=== PATIENT | female | born 1945 | race Caucasian/White ===

== ENCOUNTER 2018-02-28 05:35 | Emergency (ER) | payer MEDICARE, MEDICAID ==
--- NOTE | 2018-02-28 06:00 | ED ---
Altered Mental Status - HPI Summary HPI Summary: 72 year old females presents with confusion today. She called EMS due to someone looking through her window. When EMS got there they said she was acting confused so they brought her to the ED. unknown if this is her baseline. She states that she is confused and that she just doesn't feel right. She denies any chest pain, SOB, abdominal pain, dizziness, dysuria, or headache. She states she does not remember what happened this morning. She is orientated to name and place but not time. She continues to talk about her cat and is worried about the cat. She has PMH of DM and HTN. Level 5 cavet due to AMS. Was seen here in 2016 for a similar presentation and after further work up and information from the family it was found that the patient has history of short term memory loss and can be confused at time and may have early Alzheimer at that time. - History Of Current Complaint Chief Complaint: EDAltMentalStatus Stated Complaint: GENERAL ILLNESS Time Seen by Provider: 02/28/18 05:49 - Allergies/Home Medications Allergies/Adverse Reactions: Allergies Allergy/AdvReac Type Severity Reaction Status Date / Time liraglutide Allergy GI Upset Verified 02/28/18 07:32 Penicillins Allergy Anaphylatic Verified 02/28/18 07:37 Shock Sulfa (Sulfonamide Allergy Anaphylatic Verified 02/28/18 07:37 Antibiotics) Shock Home Medications: Home Medications Multivitamin [Multiple Vitamins] 1 tab PO DAILY 02/28/18 [History Confirmed 08/17] PMH/Surg Hx/FS Hx/Imm Hx Endocrine/Hematology History: Reports: Hx Diabetes Cardiovascular History: Reports: Hx Hypercholesterolemia Sensory History: Reports: Hx Contacts or Glasses Opthamlomology History: Reports: Hx Contacts or Glasses Neurological History: Reports: Hx Dementia - Surgical History Surgery Procedure, Year, and Place: Infectious Disease History: No Infectious Disease History: Denies: Traveled Outside the [place] in Last 30 Days - Family History Known Family History: Positive: Unknown - level 5 - Social History Alcohol Use: Rare Substance Use Type: Reports: None Smoking Status (MU): Never Smoked Tobacco Review of Systems Negative: Fever Negative: Chest Pain Negative: Shortness Of Breath Negative: Abdominal Pain Neurological: Other - confusion, "dont feel right" All Other Systems Reviewed And Are Negative: Yes Physical Exam Triage Information Reviewed: Yes Vital Signs On Initial Exam: Initial Vitals Temp Pulse Resp BP Pulse Ox 97.6 F 75 15 155/83 98 02/28/18 05:42 02/28/18 05:42 02/28/18 05:42 02/28/18 05:42 02/28/18 05:42 Vital Signs Reviewed: Yes Appearance: Positive: Well-Appearing Skin: Positive: Warm, Dry Head/Face: Positive: Normal Head/Face Inspection Eyes: Positive: Normal, EOMI, VALE, Conjunctiva Clear ENT: Positive: Normal ENT inspection, Pharynx normal, TMs normal Respiratory/Lung Sounds: Positive: Clear to Auscultation, Breath Sounds Present Cardiovascular: Positive: Normal, RRR Abdomen Description: Positive: Nontender, Soft Bowel Sounds: Positive: Present Musculoskeletal: Positive: Normal Neurological: Positive: Sensory/Motor Intact, CN Intact II-III. Negative: Alert , Oriented to Person Place, Time Psychiatric: Positive: Normal Diagnostics - Vital Signs Vital Signs Temp Pulse Resp BP Pulse Ox 02/28/18 05:42 97.6 F 75 20 155/83 98 - Laboratory Result Diagrams: 02/28/18 06:15 02/28/18 06:16 Lab Statement: Any lab studies that have been ordered have been reviewed, and results considered in the medical decision making process. - Radiology chest Xray Interpretation: No Acute Changes Radiology Interpretation Completed By: ED Physician - CT brain CT Interpretation: No Acute Changes - IMPRESSION: NO ACUTE INTRACRANIAL PATHOLOGY. MILD DIFFUSE INVOLUTIONAL BENÍTEZ CT Interpretation Completed By: Radiologist - EKG No standard instances Cardiac Rate: NL EKG Rhythm: Sinus Rhythm EKG Interpretation: sinus rhythm, short GA interval EKG Comparison: No Significant Change Re-Evaluation - Re-Evaluation First Eval Re-Evaluation Time: 07:44 Comment: patient urinated on self and doesnt remember doing so. when asked if patient has an issue with memory she states yes and that it has been going on for some time. she states does have caregivers come to her house but unsure when. Second Eval Re-Evaluation Time: 10:50 Comment: patient feels comfortable going home, no compliants Altered Mental Statu Course/Dx - Course Course Of Treatment: 72 year old females presents with confusion today. She called EMS due to someone looking through her window. When EMS got there they said she was acting confused so they brought her to the ED. unknown if this is her baseline. She states that she is confused and that she just doesn't feel right. She denies any chest pain, SOB, abdominal pain, dizziness, dysuria, or headache. She states she does not remember what happened this morning. She is orientated to name and place but not time. She continues to talk about her cat and is worried about the cat. She has PMH of DM and HTN. Level 5 cavet due to AMS. nomal physical exam is orientated to name and place but not time. wbc normal. urine trace leuk and wbc will treat as uti with macrobid. lactic normal. CT brain normal. electrolyes and kidney function normal. milvia called primary and got daugher phone number and left vm. will consults with social work to see if can get more information about living situation to make sure safe discharge in place. aps [facility] [employer] said that this is her baseline. said has daily nurses and gets meals delievered so she has a safe discharge in place. [facility] [employer] said daughter is not a dependable person for her medical needs. will send home on macrobid for uti. patient understand and agrees with plan. - Diagnoses Differential Diagnosis/HQI/PQRI: CVA, Hypoglycemia, Metabolic Disorder, Sepsis Provider Diagnoses: Confusion, UTI (urinary tract infection) Discharge - Sign-Out/Discharge Documenting (check all that apply): Patient Departure - Discharge Plan Condition: Good Disposition: HOME Prescriptions: Nitrofurantoin Monohyd/M-Cryst [Macrobid 100 mg Capsule] 100 mg PO BID #13 cap Patient Education Materials: Urinary Tract Infection in Women (ED), Altered Mental Status (ED) Referrals: Jasmyn Mooney MD [Primary Care Provider] - Additional Instructions: Take Macrobid twice a day for 7days, first dose given in ED Drink plenty of fluids Follow up with primary in 7 days Return to ED if develop fever, flank pain, vomiting or any new or worsening symptoms - Billing Disposition and Condition Condition: GOOD Disposition: Home
[2018-02-28 06:28] LABS: ABS Basophils 0 10^3/ul (0-0.2); ABS Eosinophils 0.1 10^3/ul (0-0.6); ABS Lymphocytes 0.9 10^3/ul (1.0-4.8); ABS Monocytes 0.6 10^3/ul (0-0.8); ABS Neutrophils 4.9 10^3/ul (1.5-7.7); ABS Nucleated RBC 0 10^3/ul; Eosinophil % 1.5 % (0-6); Hematocrit 39 % (35-47); Hemoglobin 13.3 g/dl (12.0-16.0); Lymphocyte % 13.9 % (25-47); Mean Corpuscular HGB Conc 34 g/dl (31-36); Mean Corpuscular Hemoglobin 33 pg (27-31); Mean Corpuscular Volume 97 fL (80-97); Mean Platelet Volume 10.1 um3 (7.4-10.4); Nucleated Red Blood Cells % 0.1; Platelet Count 206 10^3/ul (150-450); Red Blood Count 4.07 10^6/ul (4.00-5.40); Red Cell Distribution Width 15 % (10.5-15); White Blood Count 6.5 10^3/ul (3.5-10.8)
[2018-02-28 06:47] LABS: INR 0.87 (0.77-1.02)
[2018-02-28 06:51] LABS: Urine Appearance Clear; Urine Blood Negative (Negative); Urine Color Yellow; Urine Ketones Negative (Negative); Urine Protein Negative (Negative); Urine Red Blood Cell Trace(0-2/hpf) (Absent); Urine Specific Gravity 1.016 (1.010-1.030); Urine Urobilinogen Negative (Negative); Urine White Blood Cell 1+(6-10/hpf) (Absent)
[2018-02-28] MEDS ORDERED: Ciprofloxacin TAB* 500 MG PO ONE (07:03)
[2018-02-28] MEDS ORDERED: Nitrofurantoin Macrocrystals* 100 MG CAP PO ONE (07:26)
--- NOTE | 2018-02-28 07:38 | RAD ---
HISTORY: ams COMPARISONS: April 05, 2016 TECHNIQUE: Multiple contiguous axial CT scans were obtained of the head without intravenous contrast. FINDINGS: HEMORRHAGE/INFARCT: There is no hemorrhage or acute infarct. MASSES/SHIFT: There is no mass or shift. EXTRA-AXIAL SPACES: There are no extra-axial fluid collections. SULCI AND VENTRICLES: There is mild diffuse and proportional enlargement of the sulci and ventricles. CEREBRUM: There are no focal parenchymal abnormalities. BRAINSTEM: There are no focal parenchymal abnormalities. CEREBELLUM: There are no focal parenchymal abnormalities. VESSELS: The vessels are grossly normal. PARANASAL SINUSES: The paranasal sinuses are clear. ORBITS: The orbits are unremarkable. BONES AND SOFT TISSUE: No bone or soft tissue abnormalities are noted. OTHER: None IMPRESSION: NO ACUTE INTRACRANIAL PATHOLOGY. MILD DIFFUSE INVOLUTIONAL CHANGE.
[2018-02-28 07:45] LABS: EGFR Non-African American 75.5 (>60)
--- NOTE | 2018-02-28 07:58 | RAD ---
HISTORY: ams COMPARISONS: February 29, 2008 VIEWS: 1: frontal portable view of the chest at 6:25 AM FINDINGS: LINES AND TUBES: None. CARDIOMEDIASTINAL SILHOUETTE: The cardiomediastinal silhouette is normal for portable technique. PLEURA: The costophrenic angles are sharp. No pleural abnormalities are noted. LUNG PARENCHYMA: The lungs are clear. ABDOMEN: The upper abdomen is clear. There is no subphrenic gas. BONES AND SOFT TISSUES: No bone or soft tissue abnormalities are noted. IMPRESSION: NO ACTIVE CARDIOPULMONARY DISEASE. R0
[2018-02-28 11:09] VITALS: BP 139/85
== END 2018-02-28 11:00 | disposition home or self-care (01) ==
LOC: ED 05:35
DX: R41.0 Disorientation, unspecified (principal); N39.0 Urinary tract infection, site not specified; E11.9 Type 2 diabetes mellitus without complications; I10 Essential (primary) hypertension; Z88.0 Allergy status to penicillin; Z88.2 Allergy status to sulfonamides
CPT/HCPCS: 36415; 70450; 71045; 80053; 80307; 81003; 81015; 82550; 83605; 83735; 84484; 85025; 85610; 87086; 93005; 99284; A9270-GY

== ENCOUNTER 2019-01-16 10:10 | Inpatient (IN) | payer MEDICARE, MEDICAID ==
[2019-01-16 10:46] LABS: ABS Eosinophils 0.1 10^3/ul (0-0.6); ABS Lymphocytes 1.1 10^3/ul (1.0-4.8); ABS Monocytes 0.5 10^3/ul (0-0.8); ABS Neutrophils 4.2 10^3/ul (1.5-7.7); Eosinophil % 1.8 %; Hematocrit 38 % (35-47); Hemoglobin 12.6 g/dL (12.0-16.0); Lymphocyte % 18.2 %; Mean Corpuscular HGB Conc 33 g/dL (31-36); Mean Corpuscular Hemoglobin 32 pg (27-31); Mean Corpuscular Volume 97 fL (80-97); Mean Platelet Volume 9.8 fL (7.4-10.4); Platelet Count 117 10^3/uL (150-450); Red Blood Count 3.94 10^6 /uL (3.70-4.87); Red Cell Distribution Width 15 % (10-15); White Blood Count 5.9 10^3/uL (3.5-10.8)
--- NOTE | 2019-01-16 10:58 | ED ---
GI/ HPI - HPI Summary HPI Summary: This patient is a 73 year old F brought in by EMS to [facility] for AMS for the past two weeks. Per EMS the pt has had an increase in frequency of urination with a strong odorous smell present. She has pain in her suprapubic region that wraps around to her flanks. She has been having poor memory over the two week course and reports having hallucinations. She denies any CP, fevers, chills, N/V/D, and abdominal pain. She has no aggravating or alleviating factors. Her blood pressure at arrival per EMS was 148/85. She has no alleviating or aggravating symptoms. She has had no Hx of fall. - History of Current Complaint Chief Complaint: EDAltMentalStatus Time Seen by Provider: 01/16/19 10:13 Stated Complaint: POSSIBLE UTI Hx Obtained From: Patient, EMS Onset/Duration: Started Weeks Ago - 2, Still Present Timing: Constant Severity: Moderate Current Severity: Moderate Pain Intensity: 0 Location of Pain: Suprapubic Pain Radiates to: Flank Associated Signs and Symptoms: Positive: Flank Pain, Abdominal Pain - suprapubic region, UTI Symptoms - strong odorous smell during urination, frequency has increased. Negative: Nausea, Vomiting, Diarrhea, Fever, Dysuria, Chills, Chest Pain - Additional Pertinent History Primary Care Physician: JAH - Allergy/Home Medications Allergies/Adverse Reactions: Allergies Allergy/AdvReac Type Severity Reaction Status Date / Time Penicillins AdvReac Severe Nausea And Verified 01/16/19 15:40 Vomiting Sulfa (Sulfonamide AdvReac Severe Nausea And Verified 01/16/19 15:40 Antibiotics) Vomiting liraglutide AdvReac GI Upset Verified 01/16/19 15:41 Home Medications: Home Medications Atorvastatin* [Lipitor*] 40 mg PO DAILY 01/16/19 [History Confirmed 01/16/19] Cyanocobalamin TAB* [Vitamin B12 TAB*] 2,000 mcg PO DAILY 01/16/19 [History Confirmed 01/16/19] Insulin Detemir (NF) [Levemir (NF)] 50 unit SUBCUT BEDTIME 01/16/19 [History Confirmed 01/16/19] Metformin ER (NF) [Glucophage ER 750 MG TAB (NF)] 1,500 mg PO QPM 01/16/19 [ History Confirmed 01/16/19] Multivitamins/Minerals TAB* [Theragran/minerals TAB*] 1 tab PO DAILY 01/16/19 [ History Confirmed 01/16/19] Pioglitazone TAB* [Actos TAB*] 30 mg PO DAILY 01/16/19 [History Confirmed ] PMH/Surg Hx/FS Hx/Imm Hx Previously Healthy: No Endocrine/Hematology History: Reports: Hx Diabetes Cardiovascular History: Reports: Hx Hypercholesterolemia Sensory History: Reports: Hx Contacts or Glasses Opthamlomology History: Reports: Hx Contacts or Glasses Neurological History: Reports: Hx Dementia - Surgical History Surgery Procedure, Year, and Place: Infectious Disease History: No Infectious Disease History: Denies: Traveled Outside the [place] in Last 30 Days - Family History Known Family History: Positive: Unknown - level 5 - Social History Alcohol Use: Rare Hx Substance Use: No Substance Use Type: Reports: None Hx Tobacco Use: No Smoking Status (MU): Never Smoked Tobacco Review of Systems Negative: Fever, Chills Negative: Chest Pain Positive: Abdominal Pain - suprapubic region, radiates to flanks. Negative: Vomiting, Diarrhea, Nausea Positive: frequency - increased, flank pain, other - odorous urination. Negative: dysuria Neurological: Other - memory loss, hallucinations All Other Systems Reviewed And Are Negative: Yes Physical Exam - Summary Physical Exam Summary: Constitutional: Well-developed, Well-nourished, Alert. (-) Distressed Skin: Warm, Dry HENT: Normocephalic; Atraumatic Eyes: Conjunctiva normal Neck: Musculoskeletal ROM normal neck. (-) JVD, (-) Stridor, (-) Tracheal deviation Cardio: Rhythm regular, rate normal, Heart sounds normal; Intact distal pulses; The pedal pulses are 2+ and symmetric. Radial pulses are 2+ and symmetric. (-) Murmur Pulmonary/Chest wall: Effort normal. (-) Respiratory distress, (-) Wheezes, (-) Rales Abd: Soft, (-) tenderness, (-) Distension, (-) Guarding, (-) Rebound Musculoskeletal: Bilateral lower extremity 1+ pitting edema Lymph: (-) Cervical adenopathy Neuro: Alert, Oriented x3 Psych: Mood and affect Normal Triage Information Reviewed: Yes Vital Signs On Initial Exam: Initial Vitals Temp Pulse Resp BP Pulse Ox 97.7 F 71 18 148/85 100 01/16/19 10:16 01/16/19 10:16 01/16/19 10:16 01/16/19 10:16 01/16/19 10:16 Vital Signs Reviewed: Yes Diagnostics - Vital Signs Vital Signs Temp Pulse Resp BP Pulse Ox 01/16/19 10:29 100 01/16/19 10:16 97.7 F 71 18 148/85 100 - Laboratory Lab Results: Lab Results 01/16/19 Range/Units 10:33 WBC 5.9 (3.5-10.8) 10^3/uL RBC 3.94 (3.70-4.87) 10^6 /uL Hgb 12.6 (12.0-16.0) g/dL Hct 38 (35-47) % MCV 97 (80-97) fL MCH 32 H (27-31) pg MCHC 33 (31-36) g/dL RDW 15 (10-15) % Plt Count 117 L (150-450) 10^3/uL MPV 9.8 (7.4-10.4) fL Neut % (Auto) 70.5 % Lymph % (Auto) 18.2 % Logan % (Auto) 9.2 % Eos % (Auto) 1.8 % Baso % (Auto) 0.3 % Absolute Neuts (auto) 4.2 (1.5-7.7) 10^3/ul Absolute Lymphs (auto) 1.1 (1.0-4.8) 10^3/ul Absolute Monos (auto) 0.5 (0-0.8) 10^3/ul Absolute Eos (auto) 0.1 (0-0.6) 10^3/ul Absolute Basos (auto) 0.0 (0-0.2) 10^3/ul Absolute Nucleated RBC 0.0 10^3/ul Nucleated RBC % 0.0 Result Diagrams: 01/16/19 10:33 01/16/19 10:33 Lab Statement: Any lab studies that have been ordered have been reviewed, and results considered in the medical decision making process. - Radiology CXR Radiology Interpretation Completed By: Radiologist Summary of Radiographic Findings: NO ACTIVE CARDIOPULMONARY DISEASE. ED Physician has reviewed this report. - EKG 1029 Cardiac Rate: NL - 78 BPM EKG Rhythm: Sinus Rhythm ST Segment: Normal Ectopy: None Summary of EKG Findings: Normal sinus rhythm at 78 bpm, shortened SC, normal QRS , normal QTc, normal axis, normal ST, normal T-waves, nonspecific EKG. Interpreted by Tamiko Del Castillo MD at 1029 01/16/19. GIGU Course/Dx - Course Course Of Treatment: This patient is a 73 year old F brought in by EMS to [facility] for AMS for the past two weeks. Per EMS the pt has had an increase in frequency of urination with a strong odorous smell present. She has pain in her suprapubic region that wraps around to her flanks. She has been having poor memory over the two week course and reports having hallucinations. upon her PE the pt is found to have bilateral lower extremity 1+ pitting edema. She had a CXR conducted to rule out any pulmonary issues which showed NO ACTIVE CARDIOPULMONARY DISEASE. She has abnormal lab values in her Pit count, BUN/ Creatinine ration, Glucose, B-Natriuetic Peptide, urine appearance is cloudy, Ur Leukocyte Esterase, Urine WBC, Ur Squamous Epith Cells, Urine Bacteria, Urine Glucose, Urine Ascorbic Acid. She received an EKG which showed to be nonspecific and had a normal sinus rhythm at 78 bpm, shortened SC, normal QRS, normal QTc, normal axis, normal ST, normal T-waves. This report was read at 1029 01/16/19. She is being treated with IV Cipro due to a Hx of allergic reactions to Penicillin. Dr. Olsen, hospitalist, will be consulted for admission evaluation due to the pt's AMS and UTI since she lives alone. Dr. Olsen is agreeable and will admit the pt with a Dx of a UTI. - Diagnoses Differential Diagnoses - Female: Urinary Tract Infection Provider Diagnoses: UTI (urinary tract infection) - Physician Notifications Admit/Transition Orders Completed By ED Provider: Yes Discharge - Sign-Out/Discharge Documenting (check all that apply): Patient Departure - admitted Patient Received Moderate/Deep Sedation with Procedure: No - Discharge Plan Condition: Stable Disposition: ADMITTED TO [facility] - Billing Disposition and Condition Condition: STABLE Disposition: Admitted to [facility] - Attestation Statements Document Initiated by Scribe: Yes Documenting Scribe: Lester Tarango Provider For Whom Scribe is Documenting (Include Credential): Tamiko Raymond MD Scribe Attestation: I, Lester Emelina, scribed for Tamiko Del Castillo MD on 01/16/19 at 2151. Scribe Documentation Reviewed: Yes Provider Attestation: The documentation as recorded by the scribe, Lester Tarango accurately reflects the service I personally performed and the decisions made by me, Tamiko Del Castillo MD Status of Scribe Document: Viewed Consult Consult: Dr. Olsen, Hospitalist, will be consulted for a possible admission due to AMS and a UTI since the pt lives alone. Dr. Olsen agrees to admitting the pt with a Dx of a UTI.
[2019-01-16 11:04] LABS: Albumin 3.6 g/dL (3.2-5.2); Albumin/Globulin Ratio 1.2 (1-3); BUN/Creatinine Ratio 35.1 (8-20); Calcium 9.2 mg/dL (8.6-10.3); EGFR African American 88.4 (>60); EGFR Non-African American 73.1 (>60); Globulin 2.9 g/dL (2-4); Potassium 3.8 mmol/L (3.5-5.0); Total Bilirubin 0.5 mg/dL (0.2-1.0); Total Protein 6.5 g/dL (6.4-8.9)
[2019-01-16 11:27] LABS: Activated Partial Thrombo Time 34.3 seconds (26.0-38.0); INR 0.91 (0.82-1.09)
[2019-01-16 11:37] LABS: Urine Appearance Cloudy; Urine Bacteria 3+ (Absent); Urine Bilirubin Negative (Negative); Urine Blood Negative (Negative); Urine Color Yellow; Urine Glucose 3+(>=500 mg/dL) (Negative); Urine Ketones Negative (Negative); Urine Nitrite Negative (Negative); Urine Protein Negative (Negative); Urine Red Blood Cell Trace(0-2/hpf) (Absent); Urine Specific Gravity 1.015 (1.010-1.030); Urine Squamous Epithelial Cell Present (Absent); Urine Urobilinogen Negative (Negative); Urine White Blood Cell 3+(>20/hpf) (Absent)
[2019-01-16] MEDS ORDERED: Ciprofloxacin 400MG IVPREMIX(* 400 MG/200 ML BAG IVPB ONE (11:43)
[2019-01-16] MEDS ORDERED: Acetaminophen TAB* 325 MG PO PRN (12:58)
[2019-01-16] MEDS ORDERED: Dextrose 50% Syringe 50 ML* 25 GM/50 ML SYRINGE IV PUSH PRN (13:06)
--- NOTE | 2019-01-16 14:53 | HP ---
CC: Dr. Alejandro * HISTORY AND PHYSICAL: DATE OF ADMISSION: 01/16/19 PROVIDER: Sandra Bhagat NP PRIMARY CARE PROVIDER: Dr. Alejandro. ATTENDING PHYSICIAN WHILE IN THE HOSPITAL: Dr. Yasmin Olsen * (dictated by Sandra Bhaagt NP). CHIEF COMPLAINT: "I do not know." HISTORY OF PRESENT ILLNESS: Ms. Guadalupe is a 73-year-old female with a past medical history significant for diabetes, hypertension, hyperlipidemia, and dementia, who was brought into the emergency room by EMS. History of present illness was obtained from emergency room records as the patient reports "I don' t know why I am here." She is oriented to person only and to first name only. She is a very poor historian. According to the emergency room record, Ms. Guadalupe was brought to the emergency room by EMS for altered mental status for the past 2 weeks per EMS. The patient has had increased frequency of urination with strong odor. She had pain in the suprapubic region that wrapped around to her back. She has been having poor memory for approximately 2 weeks and there had been reports of hallucinations. There was no reported history of fall. Upon evaluation, the patient again is only alert and oriented to person's first name only. She denies any chest pain, cough, or hemoptysis. She denies any shortness of breath. No nausea, vomiting, diarrhea or abdominal pain. She denies any back pain. She denies any difficulty or pain with urination. She denies any rashes, lesions, or open sores. It is unclear her understanding of these questions as she is very confused at the time of evaluation. Due to her increasing altered mental status and findings of urinary tract infection, we are asked to see and evaluate her for admission. PAST MEDICAL HISTORY: Significant for diabetes, hypertension, hyperlipidemia, and dementia. PAST SURGICAL HISTORY: From her old records dated 03/14/05 reports: 1. Breast reduction. 2. . 3. Tendon graft. HOME MEDICATIONS: Include: 1. Levemir 50 units subcu daily. 2. Atorvastatin 40 mg p.o. daily. 3. Lisinopril 5 mg p.o. daily. 4. Metformin 750 mg p.o. daily. 5. Multivitamin 1 tab p.o. daily. 6. Actos 30 mg p.o. daily. This was obtained from her primary care doctor, Dr. Alejandro's office. Medication list dated 01/16/19. ALLERGIES: She has an allergy to PENICILLIN and SULFA according to her prior records, associated swelling with these medications. FAMILY HISTORY: Unknown. The patient reports "I do not remember." SOCIAL HISTORY: She denies any tobacco, alcohol, or illicit drug use. She reports she lives alone. Surrogate decision maker in the event she is unable to make her own decisions is her daughter, Sandra Guadalupe. She is a full code at this time. REVIEW OF SYSTEMS: An 11-point review of systems was completed. All pertinent positives are mentioned in the HPI. PHYSICAL EXAMINATION GENERAL: At this time, Ms. Guadalupe is a 73-year-old female. She is alert, resting on the stretcher in the emergency room, she is in no acute distress. She is oriented to first name only. She is confused to place, time, and situation. HEENT: Head is atraumatic, normocephalic. Eye: EOMs are intact. Sclerae anicteric and not pale. Oral mucosa appeared to be moist. NECK: Supple. LUNGS: Clear to auscultation bilaterally. No wheezes, rales or rhonchi. CARDIAC: S1, S2, regular rate and rhythm. No rubs or gallops. ABDOMEN: Soft and nontender. There is no suprapubic tenderness. No CVA tenderness. Bowel sounds are present x4. MUSCULOSKELETAL: She is able to move all 4 extremities. There is no clubbing or cyanosis. Pedal pulses are +2 bilaterally. SKIN: Intact. NEUROLOGIC: She is awake, alert, oriented to first name only. There is no gross focal deficits. DIAGNOSTIC STUDIES/LAB DATA: WBCs are 5.9, RBCs 3.94, hemoglobin 12.6, hematocrit was 38, platelet count was 117. INR was 0.91. Sodium 140, potassium 3.9, chloride 106, carbon dioxide 27, anion gap was 7, BUN was 27, creatinine 0.77, glucose was 220, lactic acid was 1.2, calcium was 9.2. ASTs were 14, ALTs 12, alkaline phosphatase was 88. Troponin was 0.00. BNP 212. Urine was within normal limits with the exception of leukocyte esterase of 1+, wbc's were 3+, rbc's were trace, squamous epithelial cells were present, bacteria was 3+, glucose was 3+, ascorbic acid was negative. She had a chest x- ray. Radiologist's impression, no active cardiopulmonary disease. She had an electrocardiogram, which showed sinus rhythm at a rate of 78. ASSESSMENT AND PLAN: Ms. Guadalupe is a 73-year-old female with past medical history significant for diabetes, hypertension, hyperlipidemia, and dementia who presented to the emergency room with complaints per EMS of altered mental status, found to have a urinary tract infection. She will be admitted under observation for: 1. Altered mental status. I suspect her increased altered mental status is related to underlying urinary tract infection. She will be treated with ceftriaxone. She does have an allergy to PENICILLIN and SULFA, which is swelling. She did receive Cipro 400 mg in the emergency room. We will monitor the patient closely during her infusion of ceftriaxone for any sings or symptoms of allergic reaction as there can be a 10% cross sensitivity in regards to penicillin and ceftriaxone. I will also give her gentle hydration of normal saline at 100 cc per hour. 2. Diabetes type 2. I will order fingersticks a.c. and h.s. I will hold her metformin and Actos. I will place her on lispro sliding scale. She continue on her Levemir 50 units at h.s. 3. Hyperlipidemia. She will continue her atorvastatin. 4. Hypertension. She will continue on lisinopril 5 mg p.o. daily. 5. Diet. She can have a consistent carb diet. 6. Code status, she is a full code. 7. DVT prophylaxis. I will place her on Lovenox subcu. TIME SPENT: Time spent on this admission was approximately 60 minutes, greater than half that time was spent at the bedside reviewing events leading thus far to this hospitalization, performing physical exam, and reviewing my plan of care. I have discussed this with my attending Dr. Yasmin Olsen; she is in agreement with my plan. SANDRA GRACIE, HAND II TUBE BENDER [id number]/[facility] #: [id number] BRIAN
[2019-01-16] MEDS: NS 0.9% 1000 ML** 1,000 ML IV SCH (15:12)
[2019-01-16] MEDS: cefTRIAXone(*) 1 GM in NS 0.9% 50 ML* 50 ML IVPB SCH (17:28)
[2019-01-16] MEDS: Enoxaparin(*) 40 MG/0.4 ML SYR SUBCUT SCH (17:28)
[2019-01-16] MEDS: Insulin LISPRO* 1 UNITS UNIT SUBCUT SCH (17:42)
[2019-01-16] MEDS ORDERED: Insulin GLARGINE(*) 1 UNITS UNIT SUBCUT SCH (21:00)
[2019-01-17] MEDS: NS 0.9% 1000 ML** 1,000 ML IV SCH ×2 (05:06→17:55)
[2019-01-17 06:22] LABS: ABS Eosinophils 0.1 10^3/ul (0-0.6); ABS Lymphocytes 1.7 10^3/ul (1.0-4.8); ABS Monocytes 0.6 10^3/ul (0-0.8); ABS Neutrophils 3.4 10^3/ul (1.5-7.7); Eosinophil % 1.9 %; Hematocrit 38 % (35-47); Hemoglobin 12.6 g/dL (12.0-16.0); Lymphocyte % 28.7 %; Mean Corpuscular HGB Conc 33 g/dL (31-36); Mean Corpuscular Hemoglobin 32 pg (27-31); Mean Corpuscular Volume 97 fL (80-97); Nucleated Red Blood Cells % 0.1; Platelet Count 116 10^3/uL (150-450); Red Blood Count 3.91 10^6 /uL (3.70-4.87); Red Cell Distribution Width 15 % (10-15); White Blood Count 5.9 10^3/uL (3.5-10.8)
[2019-01-17 06:38] LABS: BUN/Creatinine Ratio 33.8 (8-20); Calcium 8.9 mg/dL (8.6-10.3); EGFR African American 102.1 (>60); EGFR Non-African American 84.4 (>60); Potassium 3.5 mmol/L (3.5-5.0)
[2019-01-17] MEDS: Cyanocobalamin TAB* 500 MCG PO SCH (07:30)
[2019-01-17] MEDS: Lisinopril TAB* 5 MG PO SCH (07:30)
[2019-01-17] MEDS: Atorvastatin* 40 MG TAB PO SCH (07:30)
[2019-01-17] MEDS: Insulin LISPRO* 1 UNITS UNIT SUBCUT SCH ×3 (07:42→17:53)
[2019-01-17] MEDS: Enoxaparin(*) 40 MG/0.4 ML SYR SUBCUT SCH (12:45)
--- NOTE | 2019-01-17 13:54 | PN ---
Subjective Date of Service: 01/17/19 Interval History: VS: normo-slight hypertesive; afebrile Lab: without leukocytosis, KEVIN, gross abnormality Pt is sitting at edge of bed eating. She states she feels "good." She notes that she is urinating well and has no abdominal pain, cough, fever, or difficulties with bowel movements. She is not oriented to location or date/time , and is unable to answer why she is in the hospital. She is forgetful, pleasantly confused, and, due to this, an unreliable historian. Documented decision maker, Sandra Guadalupe, states she has limited contact with patient and is unable to provide adequate description of baseline. Caregive/ aid states that this is patient's baseline. Objective Active Medications: Acetaminophen (Tylenol Tab*) 650 mg PO Q4H PRN Atorvastatin Calcium (Lipitor*) 40 mg PO DAILY [facility] Cyanocobalamin (Vitamin B12 Tab*) 2,000 mcg PO DAILY [facility] Dextrose (D50w Syringe 50 Ml*) 12.5 gm IV PUSH .FOR FS < 60 - SS PRN Enoxaparin Sodium (Lovenox(*)) 40 mg SUBCUT Q24H [facility] Sodium Chloride (Ns 0.9% 1000 Ml) 1,000 mls @ 75 mls/hr IV PER RATE [facility] Ceftriaxone Sodium 1 gm/ (Sodium Chloride) 50 mls @ 200 mls/hr IVPB Q24H [facility] Insulin Glargine (Lantus(*)) 40 units SUBCUT BEDTIME [facility] Insulin Human Lispro (Humalog*) 0 units SUBCUT AC [facility]; Protocol Lisinopril (Prinivil Tab*) 5 mg PO DAILY [facility] Vital Signs: Temp Pulse Resp BP Pulse Ox 98.2 F 87 22 147/74 98 01/17/19 11:06 01/17/19 11:06 01/17/19 11:06 01/17/19 11:06 01/17/19 11:06 Oxygen Devices in Use Now: None Appearance: Pt is sitting at edge of bed with feet on ground. She speaks loudly and is inquisitive, but is cooperative, friendly, appropriate. She is forgetful, pleasantly confused, and, due to this, an unreliable historian. Eyes: No Scleral Icterus, PERRLA Ears/Nose/Mouth/Throat: NL Teeth, Lips, Gums, Clear Oropharnyx, Mucous Membranes Moist Neck: NL Appearance and Movements; NL JVP, Trachea Midline Respiratory: Symmetrical Chest Expansion and Respiratory Effort, Clear to Auscultation Cardiovascular: NL Sounds; No Murmurs; No JVD, RRR, No Edema Abdominal: NL Sounds; No Tenderness; No Distention, No Hepatosplenomegaly Extremities: No Edema, No Clubbing, Cyanosis Neurological: Alert and Oriented x 3 Result Diagrams: 01/17/19 05:33 01/17/19 05:33 Additional Lab and Data: Lab Results 01/16/19 Range/Units 10:33 WBC 5.9 (3.5-10.8) 10^3/uL RBC 3.94 (3.70-4.87) 10^6 /uL Hgb 12.6 (12.0-16.0) g/dL Hct 38 (35-47) % MCV 97 (80-97) fL MCH 32 H (27-31) pg MCHC 33 (31-36) g/dL RDW 15 (10-15) % Plt Count 117 L (150-450) 10^3/uL MPV 9.8 (7.4-10.4) fL Neut % (Auto) 70.5 % Lymph % (Auto) 18.2 % Major % (Auto) 9.2 % Eos % (Auto) 1.8 % Baso % (Auto) 0.3 % Absolute Neuts (auto) 4.2 (1.5-7.7) 10^3/ul Absolute Lymphs (auto) 1.1 (1.0-4.8) 10^3/ul Absolute Monos (auto) 0.5 (0-0.8) 10^3/ul Absolute Eos (auto) 0.1 (0-0.6) 10^3/ul Absolute Basos (auto) 0.0 (0-0.2) 10^3/ul Absolute Nucleated RBC 0.0 10^3/ul Nucleated RBC % 0.0 Microbiology and Other Data: Microbiology 01/16/19 11:18 Urine Culture - Preliminary Urine Klebsiella Pneumoniae 01/16/19 10:51 Aerobic Blood Culture - Preliminary Blood Venous No Growth Day 1 Anaerobic Blood Culture - Preliminary No Growth Day 1 01/16/19 10:33 Aerobic Blood Culture - Preliminary Blood Venous No Growth Day 1 Anaerobic Blood Culture - Preliminary No Growth Day 1 Assess/Plan/Problems-Billing Assessment: 73yof PMHx DM, HLD, HTN, dementia who presents with AMS and UTI. - Patient Problems (1) Altered mental status Comment: -Pleasantly confused with h/o dementia; unknown baseline -Attempting to contact family, aids, etc to determine previous mental status/ level of dementia- daughter does not keep in close contact and unable to provide details; aid states that patient is back to baselin of pleasantly confused, alert to self only -Patient lives home alone with visiting aids (2) Urinary tract infection Comment: -1+ LE in UA -Urine culture reveals klebsiella; sensitivity pending -Continue ceftriaxone (3) Diabetes mellitus Comment: -Low of 68 this a.m.; otherwise moderately well controlled -Glargine decreased from 40 to 35 -Continue Lispro ss (4) Hypertension Comment: -Moderate control -Continue lisinopril 5 (5) Hyperlipidemia Comment: -Continue atorvastatin (6) Dementia Comment: -Supportive care (7) DVT prophylaxis Comment: -Lovenox (8) Full code status
[2019-01-17] MEDS: cefTRIAXone(*) 1 GM in NS 0.9% 50 ML* 50 ML IVPB SCH (16:18)
[2019-01-17] MEDS: Insulin GLARGINE(*) 1 UNITS UNIT SUBCUT SCH (21:49)
[2019-01-18] MEDS: Insulin LISPRO* 1 UNITS UNIT SUBCUT SCH ×3 (07:34→17:53)
[2019-01-18] MEDS: Cyanocobalamin TAB* 500 MCG PO SCH (07:39)
[2019-01-18] MEDS: Lisinopril TAB* 5 MG PO SCH (07:39)
[2019-01-18] MEDS: Atorvastatin* 40 MG TAB PO SCH (07:39)
--- NOTE | 2019-01-18 11:19 | DS ---
CC: Dr. Alejandro * DISCHARGE SUMMARY: Please let this serve as the discharge summary from inpatient status and the history and physical for admission to care home care. DISPOSITION: Inpatient care home care. DATE OF ADMISSION: 01/16/19 DATE OF DISCHARGE: 01/18/19 PRIMARY CARE PROVIDER: Dr. Alejandro. ATTENDING PHYSICIAN: Dr. Olsen * (dictated by SIVAKUMAR Saunders). PRIMARY DIAGNOSES: 1. Altered mental status. 2. Urinary tract infection. SECONDARY DIAGNOSES: 1. Diabetes mellitus. 2. Hypertension. 3. Hyperlipidemia. 4. Dementia. STUDIES WHILE IN THE HOSPITAL: 1. Chest x-ray 01/16/19, impression: No active cardiopulmonary disease. 2. EKG 01/16/19, normal sinus rhythm. No ST changes. 3. Blood cultures x4, no growth to date (day 2). 4. Urine culture positive for Klebsiella pneumoniae with susceptibility to third generation cephalosporins HILTON less than 1. DISCHARGE MEDICATIONS: Home medications: 1. Atorvastatin 40 mg p.o. daily. 2. Cyanocobalamin 2000 mcg p.o. daily. 3. Insulin detemir 50 units subcu at bedtime. 4. Lisinopril 5 mg p.o. daily. 5. Metformin ER 1500 mg p.o. q.p.m. 6. Multivitamin/minerals 1 tab p.o. daily. 7. Pioglitazone 30 mg p.o. daily. New home medications: 1. Cefdinir 300 mg p.o. b.i.d. starting tonight x10 doses. HISTORY OF PRESENT ILLNESS/HOSPITAL COURSE: Ms. Guadalupe is a 73-year-old female with past medical history significant for diabetes, hypertension, hyperlipidemia , dementia. She was brought to the ER by EMS. She was a poor historian at the time, but it was noted that she was brought due to altered mental status for approximately 2 weeks. She was also noted to have increased urinary frequency, strong odor, suprapubic pain that wrapped around the back, poor memory, hallucinations. In the emergency room, the patient was noted to have a urinary tract infection. She was given Cipro 400 in the ER. She was transitioned to ceftriaxone and admitted to the floor. She continued to receive treatment with ceftriaxone throughout her stay. Urine cultures and blood cultures were sent. Blood cultures reveal no growth to date. Urine culture positive for Klebsiella pneumoniae with susceptibility to third generation cephalosporins. Again the patient was continued on ceftriaxone inpatient and transitioned to p.o. third generation cephalosporin. She will be treated for a total of 7 days. There is concern for altered mental status. The patient appeared to improve somewhat over her hospital stay, although she does have baseline dementia and is typically forgetful. She has multiple levels of support at home including [facility] home health aide, APS, meals on wheels, and Medicare transport. APS pillowcase cleaner was reached for information regarding the patient's baseline. He states that confusion is her baseline with significant short-term memory loss. There continues to be concern that the patient requires more support than she has in place at this time. It is recommended that she be placed in SNF. At the time of assessment, the patient denies chest pain, shortness of breath, abdominal pain, nausea, vomiting, diarrhea, constipation. She denies dysuria, low back pain or flank pain, fever, increased urinary frequency, or hematemesis. It is noted that she again does have dementia and perhaps is unable to provide an appropriate review of systems, but she does not have any concerns at this time. Ms. Guadalupe is stable and will be transferred to care home care, inpatient status. PHYSICAL EXAMINATION: Vital signs are temperature 98.5 oral, heart rate 69, respiratory rate 18, oxygen saturation 100% on room air, blood pressure 154/81. General: Ms. Guadalupe is a well-developed, well-nourished, obese, 73-year-old, white female, who is sitting up in bed, smiling. She is pleasant and cooperative. She is pleasantly confused but is talkative and answers questions. HEENT: PERRL, nonicteric sclerae. Slight hard of hearing. Oral mucous membranes are moist without lesions. Pharynx is clear. Cardiovascular: Regular rate and rhythm with S1, S2 present without murmurs, rubs, clicks, or gallops. Pulmonary: Symmetrical chest expansion. There is no use of accessory muscles. The lungs are clear to auscultation bilaterally without rhonchi, wheezes, or rubs. Abdomen is obese. Bowel sounds noted in all quadrants. There is no tenderness to palpation throughout the abdomen. There is no suprapubic tenderness. Negative for CVA tenderness. Extremities: Skin is warm and smooth bilaterally. No clubbing, cyanosis, or edema. Radial and pedal pulses are palpable. Neuro: The patient is awake. She is alert. She is oriented to self and place, not oriented to date. Strength is 5/5 in upper and lower extremities bilaterally. DISCHARGE PLAN: Inpatient care home care. CONDITION: Good. ACTIVITY: As tolerated. DIET: Heart healthy, ADA/diabetic diet. MEDICATIONS: Start cefdinir 300 mg p.o. q.12 hours starting tonight. This is a summarized report of a complex medical history and hospital stay. For further details, please see the entire medical record. TIME SPENT: Approximately 30 minutes was spent on this discharge, greater than half that time was spent [id number] with the patient discussing discharge plans and instructions. SIVAKUMAR BATEMAN [id number]/[facility] #: [id number] MTDJose
[2019-01-18] MEDS: Enoxaparin(*) 40 MG/0.4 ML SYR SUBCUT SCH (12:44)
--- NOTE | 2019-01-18 15:15 | CONSULT ---
Consult Consult: Consult for Medical Decision Making Capacity S: Psychiatry is asked to evaluate capacity in this 73 y.o. single, white female with a history of Alzheimer's Dementia, admitted to the Hospitalist service on January 16 due to altered mental status with subsequent treatment for UTI. The patient was being prepared for discharge back to her home here in [place] when home health service providers notified the primary team that they did not feel they could adequately meet her needs any further in the home setting. They advocated for SNF placement and the primary team feels that is what is indicated. I asked attending Hospitalist Anna Andre what the risks might entail if Merced went home, which in her estimation include the inability to meet ADLs with related failure to thrive. On exam the patient is pleasant and cooperative with a broad, bright affect. She is clutching a stuffed animal cat and invites me to pet it to see how soft it's fur is. She knows that she is in [place], [place] in the [facility]. Otherwise she is totally disoriented to time and place as well as situation. The patient cannot tell me the circumstances of her hospitalization, nor can she reproduce the treatment (SNF placement) that the team is recommending. She does decline SNF referral when I bring it up but cannot give me any reasons for her declination, saying only "Well I don't know why." Furthermore, she cannot state any risks associated with going home in her current condition. O: aging white female with graying hair; somewhat overweight; dressed in patient gown with fair grooming; speech has normal rate/tone/volume; euthymic mood with a bright affect; denies SI or HI; insight and judgment poor given insistence on going home without placement; awake and alert; disoriented to time and situation A/P: Capacity: During our interaction, Ms. Guadalupe failed to demonstrate a reasonable understanding of her illness and the events leading to hospitalization. She could not articulate what treatment has been recommended by her inpatient providers nor the associated risks of refusing said treatment. In my judgment, she lacks the capacity to make an informed decision about refusing SNF placement. Capacity is subject to change in these situations and psychiatry will continue to follow and manage her neuroleptic therapy. I have discussed my opinion with the patient and attending hospitalist, Anna Andre.
[2019-01-18] MEDS: cefTRIAXone(*) 1 GM in NS 0.9% 50 ML* 50 ML IVPB SCH (15:59)
--- NOTE | 2019-01-18 18:57 | PN ---
Hospitalist Progress Note Date of Service: 01/18/19 -Pt was to be discharged home today, but it desktop support specialist at home were concerned for safety and felt patient needed higher level of care and monitor. -Psych consulted; patient found to be without competence to make decisions -Patient transitioned to Assisted care while seeking placement -Patient will continue treatment for UTI with cefdinir x5 more days -See today's dictated discharge summary for further details
[2019-01-18] MEDS: Insulin GLARGINE(*) 1 UNITS UNIT SUBCUT SCH (20:48)
[2019-01-19] MEDS: Insulin LISPRO* 1 UNITS UNIT SUBCUT SCH ×3 (08:18→17:49)
[2019-01-19] MEDS: Atorvastatin* 40 MG TAB PO SCH (10:00)
[2019-01-19] MEDS: Cyanocobalamin TAB* 500 MCG PO SCH (10:00)
[2019-01-19] MEDS: Lisinopril TAB* 5 MG PO SCH (10:01)
[2019-01-19] MEDS: Enoxaparin(*) 40 MG/0.4 ML SYR SUBCUT SCH (12:38)
[2019-01-19] MEDS: Insulin GLARGINE(*) 1 UNITS UNIT SUBCUT SCH (20:35)
[2019-01-19] MEDS: Cefdinir cap* 300 MG CAP PO SCH (20:35)
[2019-01-20] MEDS: Insulin LISPRO* 1 UNITS UNIT SUBCUT SCH ×3 (07:18→17:38)
[2019-01-20] MEDS: Lisinopril TAB* 5 MG PO SCH (07:49)
[2019-01-20] MEDS: Cyanocobalamin TAB* 500 MCG PO SCH (07:49)
[2019-01-20] MEDS: Cefdinir cap* 300 MG CAP PO SCH ×2 (07:49→21:20)
[2019-01-20] MEDS: Atorvastatin* 40 MG TAB PO SCH (07:49)
[2019-01-20] MEDS: Enoxaparin(*) 40 MG/0.4 ML SYR SUBCUT SCH (13:11)
--- NOTE | 2019-01-20 15:38 | PN ---
Subjective Date of Service: 01/20/19 Interval History: Patient seen and examined. Offers no complaints. States she feels well, no pain , no cough. Objective Active Medications: Acetaminophen (Tylenol Tab*) 650 mg PO Q4H PRN PRN Reason: FEVER/PAIN Atorvastatin Calcium (Lipitor*) 40 mg PO DAILY [facility] Last Admin: 01/20/19 07:49 Dose: 40 mg Cefdinir (Cefdinir Cap*) 300 mg PO BID [facility] Stop: 01/24/19 09:01 Last Admin: 01/20/19 07:49 Dose: 300 mg Cyanocobalamin (Vitamin B12 Tab*) 2,000 mcg PO DAILY [facility] Last Admin: 01/20/19 07:49 Dose: 2,000 mcg Dextrose (D50w Syringe 50 Ml*) 12.5 gm IV PUSH .FOR FS < 60 - SS PRN PRN Reason: FS < 60 Enoxaparin Sodium (Lovenox(*)) 40 mg SUBCUT Q24H [facility] Last Admin: 01/20/19 13:11 Dose: 40 mg Insulin Glargine (Lantus(*)) 35 units SUBCUT BEDTIME [facility] Last Admin: 01/19/19 20:35 Dose: 35 units Insulin Human Lispro (Humalog*) 0 units SUBCUT AC [facility]; Protocol Last Admin: 01/20/19 13:11 Dose: 3 units Lisinopril (Prinivil Tab*) 5 mg PO DAILY [facility] Last Admin: 01/20/19 07:49 Dose: 5 mg Vital Signs - 8 hr 01/20/19 08:00 Respiratory 19 Rate O2 Sat by Pulse 99 Oximetry Oxygen Devices in Use Now: None Appearance: alert, NAD Eyes: No Scleral Icterus, PERRLA Ears/Nose/Mouth/Throat: NL Teeth, Lips, Gums Neck: NL Appearance and Movements; NL JVP, Trachea Midline Respiratory: Symmetrical Chest Expansion and Respiratory Effort, Clear to Auscultation Cardiovascular: NL Sounds; No Murmurs; No JVD, RRR Abdominal: NL Sounds; No Tenderness; No Distention Extremities: No Edema Neurological: - - confused, follows commands, able to make needs known Nutrition: Taking PO's Result Diagrams: 01/17/19 05:33 01/17/19 05:33 Additional Lab and Data: Lab Results 01/16/19 Range/Units 10:33 WBC 5.9 (3.5-10.8) 10^3/uL RBC 3.94 (3.70-4.87) 10^6 /uL Hgb 12.6 (12.0-16.0) g/dL Hct 38 (35-47) % MCV 97 (80-97) fL MCH 32 H (27-31) pg MCHC 33 (31-36) g/dL RDW 15 (10-15) % Plt Count 117 L (150-450) 10^3/uL MPV 9.8 (7.4-10.4) fL Neut % (Auto) 70.5 % Lymph % (Auto) 18.2 % [place] % (Auto) 9.2 % Eos % (Auto) 1.8 % Baso % (Auto) 0.3 % Absolute Neuts (auto) 4.2 (1.5-7.7) 10^3/ul Absolute Lymphs (auto) 1.1 (1.0-4.8) 10^3/ul Absolute Monos (auto) 0.5 (0-0.8) 10^3/ul Absolute Eos (auto) 0.1 (0-0.6) 10^3/ul Absolute Basos (auto) 0.0 (0-0.2) 10^3/ul Absolute Nucleated RBC 0.0 10^3/ul Nucleated RBC % 0.0 Microbiology and Other Data: Microbiology 01/16/19 11:18 Urine Culture - Preliminary Urine Klebsiella Pneumoniae 01/16/19 10:51 Aerobic Blood Culture - Preliminary Blood Venous No Growth Day 1 Anaerobic Blood Culture - Preliminary No Growth Day 1 01/16/19 10:33 Aerobic Blood Culture - Preliminary Blood Venous No Growth Day 1 Anaerobic Blood Culture - Preliminary No Growth Day 1 Assess/Plan/Problems-Billing Assessment: This is a 73 yo female with PMHx of DM, HLD, HTN and dementia who presents to the ER with AMS and UTI. - Patient Problems (1) Urinary tract infection Comment: - klebsiella in culture, treated with ceftriaxone, transitioned to cefdinir in anticipation of DC (2) Altered mental status Code(s): R41.82 - ALTERED MENTAL STATUS, UNSPECIFIED SNOMED Code(s): 114633887 Comment: - Multifactorial, combination of UTI and history of dementia - Appears to be improved, but unable to return home even with community resources that she has in place, discharge would be unsafe; please see notes from psychiatry on patient's capacity - Plan as per CM is to obtain LTC bed in SNF, CM communicated with patient's daughter regarding choices (3) Dementia Code(s): F03.90 - UNSPECIFIED DEMENTIA WITHOUT BEHAVIORAL DISTURBANCE SNOMED Code(s): 11928176 Comment: - Continue supportive care (4) Full code status Code(s): Z78.9 - OTHER SPECIFIED HEALTH STATUS SNOMED Code(s): 717872463 Status and Disposition: Inpatient, anticipated DC to SNF when bed obtained.
[2019-01-20] MEDS: Insulin GLARGINE(*) 1 UNITS UNIT SUBCUT SCH (21:20)
[2019-01-21] MEDS: Insulin LISPRO* 1 UNITS UNIT SUBCUT SCH ×3 (08:23→18:18)
[2019-01-21] MEDS: Atorvastatin* 40 MG TAB PO SCH (09:44)
[2019-01-21] MEDS: Cyanocobalamin TAB* 500 MCG PO SCH (09:44)
[2019-01-21] MEDS: Lisinopril TAB* 5 MG PO SCH (09:45)
[2019-01-21] MEDS: Cefdinir cap* 300 MG CAP PO SCH ×2 (10:00→20:27)
[2019-01-21] MEDS: Enoxaparin(*) 40 MG/0.4 ML SYR SUBCUT SCH (12:35)
[2019-01-21] MEDS: Insulin GLARGINE(*) 1 UNITS UNIT SUBCUT SCH (20:27)
[2019-01-22] MEDS: Insulin LISPRO* 1 UNITS UNIT SUBCUT SCH ×3 (07:58→18:35)
[2019-01-22] MEDS: Cefdinir cap* 300 MG CAP PO SCH ×2 (09:38→21:14)
[2019-01-22] MEDS: Atorvastatin* 40 MG TAB PO SCH (09:39)
[2019-01-22] MEDS: Cyanocobalamin TAB* 500 MCG PO SCH (09:39)
[2019-01-22] MEDS: Lisinopril TAB* 5 MG PO SCH (09:39)
--- NOTE | 2019-01-22 13:06 | DS ---
Amended report to correct date of discharge. CC: Dr. Mj Alejandro; Dr. Anil Rich * DISCHARGE SUMMARY: DATE OF ADMISSION: 01/16/19 DATE OF DISCHARGE: 01/23/19 PRIMARY CARE PROVIDER: Dr. Mj Alejandro. MY ATTENDING PHYSICIAN FOR TODAY: Dr. Tanner Santiago.* (DICTATED BY BRAYDON HOLLEY, CABRERA) CHIEF COMPLAINT: She does not know, she was confused. HOSPITAL COURSE: Please refer to admitting H and P. But in short, Ms. Guadalupe is a 73-year-old female patient with a past medical history of dementia, diabetes, hypertension, hyperlipidemia, who was brought to the emergency department by EMS for acute mental status changes. The patient was a very poor historian. She was not able to describe any history of her symptoms; however, she was able to state that she has some increased urinary frequency and she was noted to have a strong odor to her urine. Her urine was screened and she was found to have urinary tract infection with urine culture growing klebsiella. The patient was admitted for UTI and altered mental status. She was treated with IV fluids and ceftriaxone. She did receive 1 dose of IV Cipro in the emergency department primarily because of her PENICILLIN and SULFA allergies; however, she did not have any close reactivity with her ceftriaxone treatment. The patient was afebrile. She did not show any signs or symptoms of toxicity or sepsis; however, given her severely altered mental status, there was concern that she was beginning the early stages of urinary sepsis. The patient's mental status did improve somewhat, however, not significantly. The case management team did reach out to the patient's daughter, who is her healthcare proxy, although she did improve in terms of her urinary tract infection and she responded well to treatment. Her mental status did return to baseline; however, there was some concern that she was not able to care for herself, although the patient does have significant resources at home in terms of care in the house and assistance with groceries and ADLs and things of that nature. The patient's daughter thought that her mother's dementia had advanced to the point where she would not be able to adequately care for herself and that her discharge would not be safe, unfortunately, the patient was refusing to go to [facility]. Dr. Anil Rich of Psychiatry did come to evaluate the patient for her capacity. It was determined that the patient did not have capacity to understand the ramifications of her going home versus going into a facility. We are told today that the patient has bed availability at the [facility] [place] and she has been accepted there for long-term care. The patient's daughter is in agreement with this plan. DISCHARGE DIAGNOSES: 1. Urinary tract infection with klebsiella 2. Altered mental status. SECONDARY DIAGNOSES: 1. Diabetes mellitus, well controlled. 2. Dementia. 3. Hyperlipidemia. 4. Hypertension. MEDICATIONS AT DISCHARGE: Include: 1. Multivitamin with minerals. 2. Metformin ER 1500 mg p.o. in the evening. 3. Lisinopril 5 mg p.o. daily. 4. Levemir 50 units subcu at bedtime. 5. Vitamin B12 2000 mcg p.o. daily. 6. Atorvastatin 40 mg p.o. daily. New medication: Cefdinir 300 mg p.o. b.i.d. for 1 more day. REVIEW OF SYSTEMS: The patient is confused. Review of systems may be somewhat unreliable; however, she denies any pain, no shortness of breath, no fevers or chills, and no further constitutional complaints. PHYSICAL EXAMINATION: Reveals an older woman in no acute distress. Vital signs are blood pressure 131/89, heart rate 71, respiratory rate 16, O2 saturation 97% on room air, temperature 97.8. HEENT: The patient is atraumatic and normocephalic. PERRLA. Nonicteric sclerae. Oral mucosa is moist. Tongue is midline. Neck: Supple and nontender. No JVD noted. No carotid bruits auscultated. Cardiovascular: S1, S2 present. No murmurs, gallops, or rubs noted. Rate and rhythm are regular. Lungs are clear bilaterally to auscultation, with no wheezing, rhonchi or rales. Abdomen: Soft , nontender, and nondistended. Positive bowel sounds in all 4 quadrants. : Deferred. Musculoskeletal: There is no clubbing, no cyanosis, and no edema. She has +2 distal pulses palpable. Full range of motion. Steady gait. Neurologic: She is confused at baseline but appropriate, able to make her needs known. Very pleasant. No further neuro focal deficits noted. Psychiatric: She is cooperative, pleasant, and appropriate. LABORATORY DATA: WBCs 5.9, RBCs 3.91, hemoglobin 12.6, hematocrit 38, platelets 116. Sodium 143, potassium 3.5, chloride 111, CO2 of 24, BUN 23, creatinine 0.68, GFR 84.4, glucose 92, lactic acid 1.2, calcium 8.9. Bilirubin 0.50, AST 14, ALT 12, alk phos 88. Troponin 0.00. Total protein 6.5, albumin 3.6, globulin 2.9. INR 0.91. Urinalysis at admission showed yellow cloudy urine , pH of 5.0, 1+ leukocyte esterase, 3+ wbc's, trace rbc's, squamous epithelial cells are present, 3+ bacteria, 3+ glucose, and ascorbic acid is present. IMAGING: Chest x-ray dated 01/16/19 shows no active cardiopulmonary disease. DISPOSITION: The patient will be discharged to [facility]. She is in stable condition today. Case management has reached out to the patient's daughter, who is the healthcare proxy, her name is Sandra. Gissel Coombs, window caser has been in communication with her and that she is in agreement with her mother Merced Guadalupe going to [facility] for [facility]. We are currently waiting for [facility] to obtain authorization. Plan is for the patient to be discharged to that facility today. FOLLOWUP: The patient should follow up with the attending fire extinguisher mechanic at [facility] [place] upon admission to that facility. TIME SPENT: Approximately 45 minutes on discharge planning. BRAYDON HOLLEY NP [id number]/[facility] #: [id number] [facility]EW[facility] MEDICAL CENTERJose
[2019-01-22] MEDS: Enoxaparin(*) 40 MG/0.4 ML SYR SUBCUT SCH (13:09)
[2019-01-22] MEDS: Insulin GLARGINE(*) 1 UNITS UNIT SUBCUT SCH (21:13)
[2019-01-23 08:11] VITALS: BP 148/65
[2019-01-23] MEDS: Insulin LISPRO* 1 UNITS UNIT SUBCUT SCH (08:31)
[2019-01-23] MEDS: Atorvastatin* 40 MG TAB PO SCH (09:07)
[2019-01-23] MEDS: Cyanocobalamin TAB* 500 MCG PO SCH (09:07)
[2019-01-23] MEDS: Cefdinir cap* 300 MG CAP PO SCH (09:07)
[2019-01-23] MEDS: Lisinopril TAB* 5 MG PO SCH (09:08)
== END 2019-01-23 11:00 | DRG 690 ==
LOC: ED 10:10 → MED 12:58 → OBSVTOIN 01-18 16:00
PROVIDERS: ADMIT Internal Medicine; ATTEND Internal Medicine
DX: N39.0 Urinary tract infection, site not specified (principal); B96.1 Klebsiella pneumoniae [K. pneumoniae] as the cause of diseases classified elsewhere; E11.9 Type 2 diabetes mellitus without complications; E78.00 Pure hypercholesterolemia, unspecified; E78.5 Hyperlipidemia, unspecified; G30.9 Alzheimer's disease, unspecified; R41.82 Altered mental status, unspecified; F02.80 Dementia in other diseases classified elsewhere, unspecified severity, without behavioral disturbance, psychotic disturbance, mood disturbance, and anxiety; Z88.0 Allergy status to penicillin; Z88.8 Allergy status to other drugs, medicaments and biological substances; Z88.2 Allergy status to sulfonamides
CPT/HCPCS: 36415; 71045; 80048; 80053; 81003; 81015; 83605; 83880; 84484; 85025; 85610; 85730; 87040; 87077; 87086; 87186; 93005; 99284; A9270-GY; J0696; J0744; J1650

== ENCOUNTER 2019-08-30 15:20 | Inpatient (IN) | payer MEDICAID, MEDICARE ==
[2019-08-30] MEDS ORDERED: NS 0.9% 1000 ML** 1,000 ML IV.FLUID IV ONE (15:59)
--- NOTE | 2019-08-30 16:02 | ED ---
Altered Mental Status - HPI Summary HPI Summary: Patient is a 73 y/o F presenting to [facility] via EMS from [facility] for AMS. It is reported that this decline started a week ago. Patient is able to speak but is not responding appropriately to questions. She is a level 5 caveat secondary to AMS. O2 saturation on RA is 93-94%. Pulse is 100s. Hx of UTI noted per medical records. Home medications and allergies are reviewed. - History Of Current Complaint Chief Complaint: EDAltMentalStatus Stated Complaint: DIABETIC ISSUE PER EMS Time Seen by Provider: 08/30/19 15:33 Hx Obtained From: EMS, Medical Records Hx From Patient Unobtainable Due To: Altered Mental Status Onset/Duration: Still Present Timing: Constant, Lasting Weeks Character: Confusion, Responsiveness Aggravating Factor(s): Unknown Alleviating Factor(s): Unknown - Allergies/Home Medications Allergies/Adverse Reactions: Allergies Allergy/AdvReac Type Severity Reaction Status Date / Time Penicillins AdvReac Severe Nausea And Verified 01/16/19 15:40 Vomiting Sulfa (Sulfonamide AdvReac Severe Nausea And Verified 01/16/19 15:40 Antibiotics) Vomiting liraglutide AdvReac GI Upset Verified 01/16/19 15:41 Home Medications: Home Medications Cyanocobalamin INJ * [Vitamin B12 INJ *] 1,000 mcg IM MONTHLY 08/30/19 [History Confirmed 08/30/19] Dulaglutide (NF) [Trulicity (NF)] 0.75 mg SUBCUT WEEKLY 08/30/19 [History Confirmed 08/30/19] Magnesium Hydroxide LIQ* [Milk of Magnesia LIQ*] 30 ml PO DAILY PRN 08/30/19 [ History Confirmed 08/30/19] Pioglitazone HCl/Metformin HCl [Pioglitazone-Metformin 15-500] 1 tab PO BID [History Confirmed 08/30/19] Sennosides/Docusate Sodium [Senna Plus 8.6-50 mg Tablet] 1 tab PO BEDTIME [History Confirmed 08/30/19] PMH/Surg Hx/FS Hx/Imm Hx Endocrine/Hematology History: Reports: Hx Diabetes Cardiovascular History: Reports: Hx Hypercholesterolemia Sensory History: Reports: Hx Contacts or Glasses Denies: Hx Hearing Aid Opthamlomology History: Reports: Hx Contacts or Glasses Neurological History: Reports: Hx Dementia - Surgical History Surgery Procedure, Year, and Place: Infectious Disease History: No Infectious Disease History: Denies: Traveled Outside the [place] in Last 30 Days - Family History Known Family History: Positive: Unknown - level 5 caveat - Social History Alcohol Use: unable to obtain Hx Substance Use: No Substance Use Type: Reports: None Hx Tobacco Use: No Smoking Status (MU): Never Smoked Tobacco Review of Systems - ROS Summary Review of Systems Summary: level 5 caveat secondary to AMS Negative: Fever - on vitals, temp is 98.4 F Neurological: Other - positive - AMS All Other Systems Reviewed And Are Negative: No - Comments Additional Review of Systems Comments: level 5 caveat secondary to AMS Physical Exam - Summary Physical Exam Summary: Constitutional: Well-developed, Well-nourished, Alert. (-) Distressed Skin: Warm, Dry HENT: Normocephalic; Atraumatic, Dry Mucous Membranes. Eyes: Conjunctiva normal Neck: Musculoskeletal ROM normal neck. (-) JVD, (-) Stridor, (-) Tracheal deviation Cardio: Rhythm regular, rate normal, Heart sounds normal; Intact distal pulses; The pedal pulses are 2+ and symmetric. Radial pulses are 2+ and symmetric. (-) Murmur Pulmonary/Chest wall: Effort normal. (-) Respiratory distress, (-) Wheezes, (-) Rales Abd: Soft, (-) tenderness, (-) Distension, (-) Guarding, (-) Rebound Musculoskeletal: (-) Edema Lymph: (-) Cervical adenopathy Neuro: Patient is a level 5 caveat secondary to AMS, patient can answer questions but does so inappropriately Psych: Patient is a level 5 caveat secondary to AMS Triage Information Reviewed: Yes Vital Signs On Initial Exam: Initial Vitals Temp Pulse Resp BP Pulse Ox 98.4 F 106 18 113/74 93 08/30/19 15:28 08/30/19 15:28 08/30/19 15:28 08/30/19 15:28 08/30/19 15:28 Vital Signs Reviewed: Yes Completion Of Physical Exam Limited Due To: Altered Mental Status, Level 5 - Windy Coma Scale Best Eye Response: 4 - Spontaneous Best Motor Response: 6 - Obeys Commands Best Verbal Response: 5 - Oriented Coma Scale Total: 15 Procedures - Sedation Patient Received Moderate/Deep Sedation with Procedure: No Diagnostics - Vital Signs Vital Signs Temp Pulse Resp BP Pulse Ox 08/30/19 15:28 98.4 F 106 18 113/74 93 - Laboratory Result Diagrams: 08/30/19 16:11 08/30/19 21:39 Lab Statement: Any lab studies that have been ordered have been reviewed, and results considered in the medical decision making process. - Radiology CXR Radiology Interpretation Completed By: Radiologist Summary of Radiographic Findings: CXR. IMPRESSION: 1. No acute cardiopulmonary process by radiograph. THIS REPORT WAS REVIEWED BY ED PHYSICIAN. - CT BRAIN CT CT Interpretation Completed By: Radiologist Summary of CT Findings: BRAIN CT. IMPRESSION: 1. No acute intracranial abnormality. 2. Generalized ventriculomegaly, in the context of sulcal prominence, is usually. field marketing representative of cerebral volume loss. However, with altered mental status, correlate for. signs of normal pressure hydrocephalus. THIS REPORT WAS REVIEWED BY ED PHYSICIAN. - EKG 1615 Cardiac Rate: Tachycardia - rate of 104 BPM EKG Rhythm: Sinus Tachycardia Summary of EKG Findings: EKG showed sinus tachycardia with rate of 104 BPM, TWI in V3-V6, no STEMI. EKG was reviewed and interpreted by ED physician. Altered Mental Statu Course/Dx - Course Course Of Treatment: Patient is a 73 y/o F presenting to [facility] via EMS from [facility] for AMS. It is reported that this decline started a week ago. Patient is able to speak but is not responding appropriately to questions. She is a level 5 caveat secondary to AMS. O2 saturation on RA is 93-94%. Pulse is 100s. Hx of UTI noted per medical records. On physical exam, dry mucous membranes noted, patient can answer questions but does not inappropriately. Bloodwork was obtained abnormal values include glucose 1222, lactic acid 2.4, trop 0.06. WBC 11.4, Hct 49, MCV 102, RDW 16, MPV 10.9, absolute neuts 10.1, absolute lymphs 0.6, anion gap 12, BUN 74, creatinine 1.74, BUN/creatinine ratio 42.5. VBG pH was 7.26, pCO2 56, HCO3 21.7, o2 saturation 59.2, base excess -2.8. UA showed trace ketones and 3+ glucose. During ED course, patient received NS and insulin, 1000 units in 100 mls @ 9.072 mls/hr IV. CXR. IMPRESSION: 1. No acute cardiopulmonary process by radiograph. BRAIN CT. IMPRESSION: 1. No acute intracranial abnormality. 2. Generalized ventriculomegaly, in the context of sulcal prominence, is usually. field marketing representative of cerebral volume loss. However, with altered mental status, correlate for. signs of normal pressure hydrocephalus. Patient's case was discussed with Dr. Olsen, Dr. Olsen accepts for admission. - Diagnoses Provider Diagnoses: Diabetic hyperosmolar non-ketotic state - Provider Notifications Discussed Care Of Patient With: Yasmin Olsen Time Discussed With Above Provider: 17:41 Instructed by Provider To: Other - Patient's case was discussed with Dr. Olsen, Dr. Olsen accepts for admission. - Critical Care Time Critical Care Time: 30-74 min - 60 minutes CCT Discharge ED - Sign-Out/Discharge Documenting (check all that apply): Patient Departure - admit All imaging exams completed and their final reports reviewed: Yes - Discharge Plan Condition: Fair Disposition: ADMITTED TO [facility] - Attestation Statements Document Initiated by Scribe: Yes Documenting Scribe: RIK DUGAN Provider For Whom Scribe is Documenting (Include Credential): LELIA FRAUSTO MD Scribe Attestation: IRIK, scribed for LELIA FRAUSTO MD on 08/30/19 at 2306. Status of Scribe Document: Ready
[2019-08-30 16:45] LABS: INR 0.87 (0.82-1.09)
[2019-08-30 16:52] LABS: ABS Lymphocytes 0.6 10^3/ul (1.0-4.8); ABS Monocytes 0.7 10^3/ul (0-0.8); ABS Neutrophils 10.1 10^3/ul (1.5-7.7); AST 52 U/L (13-39); Albumin 3.6 g/dL (3.2-5.2); Albumin/Globulin Ratio 1.2 (1-3); Alkaline Phosphatase 103 U/L (34-104); Anion Gap 12 mmol/L (2-11); BUN/Creatinine Ratio 42.5 (8-20); Blood Urea Nitrogen 74 mg/dL (6-24); CO2 Carbon Dioxide 25 mmol/L (22-32); Calcium 8.6 mg/dL (8.6-10.3); Chloride 103 mmol/L (101-111); EGFR African American 34.5 (>60); EGFR Non-African American 28.5 (>60); Globulin 3.1 g/dL (2-4); Hematocrit 49 % (35-47); Hemoglobin 15.1 g/dL (12.0-16.0); Lymphocyte % 5.4 %; Mean Corpuscular HGB Conc 31 g/dL (31-36); Mean Corpuscular Hemoglobin 31 pg (27-31); Mean Corpuscular Volume 102 fL (80-97); Mean Platelet Volume 10.9 fL (7.4-10.4); Platelet Count 158 10^3/uL (150-450); Potassium 4.9 mmol/L (3.5-5.0); Red Cell Distribution Width 16 % (10-15); Sodium 140 mmol/L (135-145); Total Protein 6.7 g/dL (6.4-8.9); White Blood Count 11.4 10^3/uL (3.5-10.8)
[2019-08-30 16:56] LABS: Troponin I 0.06 ng/mL (<0.03)
[2019-08-30 17:05] LABS: Urine Appearance Clear; Urine Bilirubin Negative (Negative); Urine Blood Negative (Negative); Urine Color Yellow; Urine Glucose 3+(>=500 mg/dL) (Negative); Urine Ketones Trace (Negative); Urine Nitrite Negative (Negative); Urine Protein Negative (Negative); Urine Specific Gravity 1.028 (1.010-1.030); Urine Urobilinogen Negative (Negative)
[2019-08-30 17:55] LABS: Glucose 1222 mg/dL (70-100)
[2019-08-30] MEDS ORDERED: Insulin Infusion 100unit/100mL 100 UNIT/100 ML BAG IV ONE (18:00)
[2019-08-30] MEDS ORDERED: NS 0.9% w/ 40 Meq KCL 1000 ML* 1,000 ML IV SCH ×2 (18:00→18:36)
[2019-08-30 18:42] LABS: ALT 35 U/L (7-52)
[2019-08-30] MEDS ORDERED: NS 0.9% 1000 ML** 1,000 ML IV ONE ×2 (18:56→22:27)
--- NOTE | 2019-08-30 19:04 | HP ---
H&P (Free Text) History and Physical: DATE OF ADMISSION: 08/30/19 REASON FOR ADMISSION: AMS ATTENDING PHYSICIAN: Dr Gillespie/Dr Olsen CHIEF COMPLAINT: AMS HPI: 73F with known medical history of DM, HLD, dementia, AMS, was brought to ED from SNF with AMS. Information is extremely limited d/t AMS, level 5 caveat, and no information available from SNF. Upon arrival to ED, BG noted to be >555, anion gap 12, BUN 74 and creatinine 1.74. ED/floor Course: Given 2.7L bolus. Will be started on insulin gtt ROS: ROS unable to be obtained secondary to dementia/mental status change PMHx: DM, HLD, dementia PSHx: csection Family History: unable to be obtained Social History: unable to be obtained Allergies: Allergies Allergy/AdvReac Type Severity Reaction Status Date / Time Penicillins AdvReac Severe Nausea And Verified 01/16/19 15:40 Vomiting Sulfa (Sulfonamide AdvReac Severe Nausea And Verified 01/16/19 15:40 Antibiotics) Vomiting liraglutide AdvReac GI Upset Verified 01/16/19 15:41 Home Medications: Lisinopril TAB* [Prinivil TAB 5 MG*] 5 mg PO DAILY 04/05/16 [History Confirmed 08/30/19] Atorvastatin* [Lipitor 40 MG*] 40 mg PO EVERY OTHER DAY 01/16/19 [History Confirmed 08/30/19] Cyanocobalamin INJ * [Vitamin B12 INJ *] 1,000 mcg IM MONTHLY 08/30/19 [History Confirmed 08/30/19] Dulaglutide (NF) [Trulicity (NF)] 0.75 mg SUBCUT WEEKLY 08/30/19 [History Confirmed 08/30/19] Magnesium Hydroxide LIQ* [Milk of Magnesia LIQ*] 30 ml PO DAILY PRN 08/30/19 [ History Confirmed 08/30/19] Pioglitazone HCl/Metformin HCl [Pioglitazone-Metformin 15-500] 1 tab PO BID [History Confirmed 08/30/19] Sennosides/Docusate Sodium [Senna Plus 8.6-50 mg Tablet] 1 tab PO BEDTIME [History Confirmed 08/30/19] Tele: NSR Vitals: Vital Signs 08/30/19 08/30/19 08/30/19 15:28 15:41 15:58 Temperature 98.4 F Pulse Rate 106 102 Respiratory 18 Rate Blood Pressure 113/74 136/90 (mmHg) O2 Sat by Pulse 93 93 93 Oximetry 08/30/19 08/30/19 08/30/19 16:01 16:55 17:00 Temperature Pulse Rate 103 100 101 Respiratory 23 20 Rate Blood Pressure 90/77 (mmHg) O2 Sat by Pulse 93 93 94 Oximetry 08/30/19 08/30/19 17:12 17:42 Temperature Pulse Rate 102 98 Respiratory 24 28 Rate Blood Pressure 148/67 134/78 (mmHg) O2 Sat by Pulse 95 99 Oximetry Intake and Output Last 24 Hours 08/28/19 08/29/19 08/30/19 08/31/19 06:59 06:59 06:59 06:59 Weight 200 lb O2: RA Infusions: NA Current Medications: Atorvastatin Calcium (Lipitor*) 40 mg PO EVERY OTHER DAY [facility] Insulin Human Regular (Insulin Regular Iv Infusion 1 Unit/Ml) 100 unit in 100 mls @ 9.072 mls/hr IV PER RATE ONE Stop: 08/31/19 05:01 Last Admin: 08/30/19 18:31 Dose: 9.072 mls/hr Potassium Chloride/Sodium Chloride (Ns 0.9% W/ 40 Meq Kcl 1000 Ml*) 1,000 mls @ 100 mls/hr IV PER RATE [facility] Senna/Docusate Sodium (Sennokot-S(Nf)) 1 tab PO BEDTIME [facility] Physical Exam: Constitutional: awake, alert, no distress, no diaphoresis Head: normocephalic, atraumatic Eyes: no pallor, no icterus ENT: moist mucous membranes Neck: soft, supple, no jvd, no stridor CVS: normal rate, regular, no murmur Chest/Resp: bilateral air entry, no rhales, no wheeze, no rhonchi, no acc muscle use Abdomen/GI: soft, nontender, nondistended, BS+ Ext/Msk: warm, pulses+, 1+ pitting edema BLE Skin: intact, warm Neuro: awake, alert, unable to answer orientation questions. Nonverbal. Does follow simple commands. PERRL 3mm, moving all extremities, no gross focal deficit Labs: Laboratory Results - last 24 hr 08/30/19 08/30/1920 16:03 16:11 16:11 WBC 11.4 H RBC 4.80 Hgb 15.1 Hct 49 H MCV 102 H MCH 31 MCHC 31 RDW 16 H Plt Count 158 MPV 10.9 H Neut % (Auto) 88.2 Lymph % (Auto) 5.4 [place] % (Auto) 6.3 Eos % (Auto) 0.0 Baso % (Auto) 0.1 Absolute Neuts (auto) 10.1 H Absolute Lymphs (auto) 0.6 L Absolute Monos (auto) 0.7 Absolute Eos (auto) 0.0 Absolute Basos (auto) 0.0 Absolute Nucleated RBC 0.0 Nucleated RBC % 0.0 INR (Anticoag Therapy) 0.87 APTT 26.0 VBG pH 7.26 L VBG pCO2 56 H VBG pO2 < 38.0 VBG HCO3 21.7 L VBG O2 Saturation 59.2 L VBG Base Excess -2.8 L Sodium Potassium Chloride Carbon Dioxide Anion Gap BUN Creatinine Est GFR ( Amer) Est GFR (Non-Af Amer) BUN/Creatinine Ratio Glucose POC Glucose (mg/dL) Lactic Acid Calcium Total Bilirubin AST ALT Alkaline Phosphatase Troponin I Total Protein Albumin Globulin Albumin/Globulin Ratio Urine Color Urine Appearance Urine pH Ur Specific [place] Urine Protein Urine Ketones Urine Blood Urine Nitrate Urine Bilirubin Urine Urobilinogen Ur Leukocyte Esterase Urine Glucose 08/30/19 08/30/19 08/30/19 16:11 16:11 16:12 WBC RBC Hgb Hct MCV MCH MCHC RDW Plt Count MPV Neut % (Auto) Lymph % (Auto) [place] % (Auto) Eos % (Auto) Baso % (Auto) Absolute Neuts (auto) Absolute Lymphs (auto) Absolute Monos (auto) Absolute Eos (auto) Absolute Basos (auto) Absolute Nucleated RBC Nucleated RBC % INR (Anticoag Therapy) APTT VBG pH VBG pCO2 VBG pO2 VBG HCO3 VBG O2 Saturation VBG Base Excess Sodium 140 Potassium 4.9 Chloride 103 Carbon Dioxide 25 Anion Gap 12 H BUN 74 H Creatinine 1.74 H Est GFR ( Amer) 34.5 Est GFR (Non-Af Amer) 28.5 BUN/Creatinine Ratio 42.5 H Glucose 1222 H* POC Glucose (mg/dL) > 444 H* Lactic Acid 2.4 H* Calcium 8.6 Total Bilirubin 0.60 AST 52 H ALT 35 Alkaline Phosphatase 103 Troponin I 0.06 H* Total Protein 6.7 Albumin 3.6 Globulin 3.1 Albumin/Globulin Ratio 1.2 Urine Color Urine Appearance Urine pH Ur Specific [place] Urine Protein Urine Ketones Urine Blood Urine Nitrate Urine Bilirubin Urine Urobilinogen Ur Leukocyte Esterase Urine Glucose 08/30/19 16:56 WBC RBC Hgb Hct MCV MCH MCHC RDW Plt Count MPV Neut % (Auto) Lymph % (Auto) [place] % (Auto) Eos % (Auto) Baso % (Auto) Absolute Neuts (auto) Absolute Lymphs (auto) Absolute Monos (auto) Absolute Eos (auto) Absolute Basos (auto) Absolute Nucleated RBC Nucleated RBC % INR (Anticoag Therapy) APTT VBG pH VBG pCO2 VBG pO2 VBG HCO3 VBG O2 Saturation VBG Base Excess Sodium Potassium Chloride Carbon Dioxide Anion Gap BUN Creatinine Est GFR ( Amer) Est GFR (Non-Af Amer) BUN/Creatinine Ratio Glucose POC Glucose (mg/dL) Lactic Acid Calcium Total Bilirubin AST ALT Alkaline Phosphatase Troponin I Total Protein Albumin Globulin Albumin/Globulin Ratio Urine Color Yellow Urine Appearance Clear Urine pH 5.0 Ur Specific [place] 1.028 Urine Protein Negative Urine Ketones Trace A Urine Blood Negative Urine Nitrate Negative Urine Bilirubin Negative Urine Urobilinogen Negative Ur Leukocyte Esterase Negative Urine Glucose 3+(>=500 mg/dl) A Imaging: chest xray 08/30: clear EKG: sinus tachy, qtc 553 Assessment: 73F with known medical history of DM, HLD, dementia, presents with AMS on 08/30. BG 1222, anion gap 12, BUN 74, creatinine 1.74, AST 52, troponin 0.06 - HHS - AMS - Dementia - KEVIN Plan: Neuro- - AMS: acute. Most likely d/t HHS. CT brain done, showed possible NPH but unable to determine at this time. Will correct metabolic imbalances and then reassess -Delirium prec; avoid BDZ CVS- - Troponin slightly elevated @ 0.06. Will trend -Maintain MAP>65 as long as SBP<150 Resp- - No active issues - Chest xray clear -Goal sat>92% - Aspiration prec, Pulmonary Toilet ID- - WBC slightly elevated @ 11. - R/o infection - UA and blood cultures pending GI- -Nutrition: NPO until NYLON WINDER -GI prophylaxis not indicated at this time Renal- -strict I/O, replete to keep K>4, Mg>2 -morejon - KEVIN: BUN/creat elevated. continue hydration and monitor Heme- - SCDs for DVT prophylaxis Endo- - HHS: acute. Bolused with 2.7L in ED. NS @ 125. - Insulin gtt per protocol. BG q1hr. - BMP/Mag/phos q6hr -Maintain BG<200 Musculsk- pressure ulcer prophylaxis. Activity as tolerated Wounds- none Nutrition-NPO until NYLON WINDER DVT prophylaxis: SCDs GI prophylaxis: not indicated Morejon Cathetor:place Disposition: Admit to ICU; Expected LOS>2 midnights; Patient requires Critical Care/ICU for HHS, AMS, KEVIN Patient Clinical Status: critical Code Status: full Total Critical Care time is 45 minutes
[2019-08-30] MEDS ORDERED: Haloperidol INJ IV/IM* 5 MG/ML AMP IM ONE (20:14)
[2019-08-30] MEDS ORDERED: Haloperidol INJ IV/IM* 5 MG/ML AMP ONE (20:19)
[2019-08-30] MEDS ORDERED: Magnesium Sulfate 1 GM IV* 1 GM/100 ML BAG IV ONE (20:21)
[2019-08-30 20:29] LABS: Glucose Confirmatory 631 mg/dL (70-100)
[2019-08-30] MEDS ORDERED: Nystatin TOP POWDER* 15 GM BTL TOPICAL SCH (21:00)
[2019-08-30] MEDS ORDERED: Nystatin CREAM* 30 GM TOPICAL SCH (21:23)
[2019-08-30 21:31] LABS: BUN/Creatinine Ratio 42.6 (8-20); Blood Urea Nitrogen 60 mg/dL (6-24); CO2 Carbon Dioxide 22 mmol/L (22-32); Calcium 8.2 mg/dL (8.6-10.3); EGFR Non-African American 36.4 (>60); Phosphorus 2.1 mg/dL (2.5-5.0)
[2019-08-30 21:35] LABS: Anion Gap 11 mmol/L (2-11); Chloride 118 mmol/L (101-111); Glucose 634 mg/dL (70-100); Sodium 151 mmol/L (135-145)
[2019-08-30 21:41] LABS: Troponin I 0.07 ng/mL (<0.03)
[2019-08-30] MEDS: NS 0.9% 1000 ML** 1,000 ML IV SCH ×2 (21:49→23:52)
[2019-08-30] MEDS: Senna TAB 8.6 mg* TAB PO SCH (21:52)
[2019-08-30] MEDS: Docusate CAP* 100 MG PO SCH (21:52)
[2019-08-30 21:55] LABS: Magnesium 3.1 mg/dL (1.9-2.7); Potassium Redraw 4.3 mmol/L (3.5-5.0)
[2019-08-30] MEDS ORDERED: Dexmedetomidine* 1,000 MCG in NS 0.9% 250 ML* 240 ML IV SCH (22:00)
[2019-08-30 22:08] LABS: Urine Appearance Clear; Urine Bilirubin Negative (Negative); Urine Blood 2+ (Negative); Urine Color Straw; Urine Glucose 3+(>=500 mg/dL) (Negative); Urine Ketones Negative (Negative); Urine Nitrite Negative (Negative); Urine Protein Negative (Negative); Urine Specific Gravity 1.032 (1.010-1.030); Urine Urobilinogen Negative (Negative)
[2019-08-30 22:11] LABS: Urine Bacteria 1+ (Absent); Urine Red Blood Cell 1+(3-5/hpf) (Absent); Urine White Blood Cell Trace(0-5/hpf) (Absent)
[2019-08-30] MEDS ORDERED: KCL 20 MEQ/100 ML IVPREMIX* 20 MEQ/100 ML BAG IV ONE (22:27)
[2019-08-30] MEDS: Nystatin OINT* 15 GM TOPICAL SCH (22:33)
[2019-08-31] MEDS ORDERED: NS 0.9% 1000 ML** 1,000 ML IV SCH (00:15)
[2019-08-31 04:11] LABS: ABS Lymphocytes 1.3 10^3/ul (1.0-4.8); ABS Monocytes 0.6 10^3/ul (0-0.8); ABS Neutrophils 7.4 10^3/ul (1.5-7.7); Eosinophil % 0.3 %; Hematocrit 41 % (35-47); Hemoglobin 13.2 g/dL (12.0-16.0); Lymphocyte % 14.1 %; Mean Corpuscular HGB Conc 32 g/dL (31-36); Mean Corpuscular Hemoglobin 31 pg (27-31); Mean Corpuscular Volume 96 fL (80-97); Mean Platelet Volume 9.9 fL (7.4-10.4); Platelet Count 122 10^3/uL (150-450); Red Blood Count 4.26 10^6 /uL (3.70-4.87); Red Cell Distribution Width 15 % (10-15); White Blood Count 9.4 10^3/uL (3.5-10.8)
[2019-08-31 04:32] LABS: Blood Urea Nitrogen 48 mg/dL (6-24); CO2 Carbon Dioxide 25 mmol/L (22-32); Calcium 7.5 mg/dL (8.6-10.3); EGFR African American 66.9 (>60); EGFR Non-African American 55.3 (>60); Glucose 260 mg/dL (70-100); Magnesium 2.7 mg/dL (1.9-2.7); Phosphorus 1.8 mg/dL (2.5-5.0)
[2019-08-31 04:34] LABS: Anion Gap 3 mmol/L (2-11); Chloride 127 mmol/L (101-111); Sodium 155 mmol/L (135-145)
[2019-08-31 04:46] LABS: Troponin I 0.08 ng/mL (<0.03)
[2019-08-31] MEDS: D5W 1/2 NS KCl 20 Meq 1000 ML* 1,000 ML IV SCH ×3 (05:24→22:07)
[2019-08-31] MEDS ORDERED: Dexmedetomidine* 1,000 MCG in NS 0.9% 250 ML* 240 ML IV SCH (05:30)
[2019-08-31] MEDS ORDERED: Insulin Infusion 100unit/100mL 100 UNIT/100 ML BAG IV SCH ×3 (06:00→20:00)
[2019-08-31] MEDS ORDERED: Potassium Phosphate IV* 10 MMOLE in NS 0.9% 250 ML* 250 ML IVPB ONE (08:00)
[2019-08-31] MEDS: Nystatin OINT* 15 GM TOPICAL SCH ×2 (12:37→21:33)
[2019-08-31] MEDS ORDERED: Lorazepam PYXIS KEY ONE (15:27)
[2019-08-31] MEDS ORDERED: Lorazepam PYXIS KEY PRN (15:27)
[2019-08-31] MEDS ORDERED: LORazepam INJ* 2 MG/ML 1 ML VIAL ONE ×2 (15:27→19:48)
[2019-08-31] MEDS ORDERED: LORazepam INJ* 2 MG/ML 1 ML VIAL IV PUSH ONE ×2 (15:27→20:00)
--- NOTE | 2019-08-31 16:14 | PN ---
Date of Service: 08/31/19 Critical Care Services: Patient was admitted from [facility] yesterday. She has no complaints this morning. She denies chest pain, shortness of breath, or abdominal pain. She does not know why she is in the hospital. Afebrile. Vital Signs: Temp Pulse Resp BP SpO2 FiO2 96.8 F 69 19 112/63 96 08/31/19 11:01 08/31/19 11:01 08/31/19 16:12 08/31/19 11:08/31/19 11:01 Physical Exam: Gen: No acute distress. Lying in bed. HEENT: Normocephalic and atraumatic. Pupils are equal. Moist mucous membranes. Neck supple and trachea midline. Lungs: Clear to auscultation bilaterally. No accessory muscle use. Cardiac: RRR Abdomen: Soft, nontender, nondistended. Extremities: Warm. Palpable pedal pulses. No pedal edema. Neuro: Awake and alert. Confused, oriented to person and place only. Moves all extremities equally. No focal deficits. Psych: Affect normal. Fluid Balance (Past 24 Hours): Net +1461 ml / 24h Intake & Output 08/29/19 08/30/19 08/31/19 09/01/19 06:59 06:59 06:59 06:59 Intake Total 2426 Output Total 965 185 Balance 1461 -185 Weight 167 lb 9.6 oz Intake: IV Fluids 1583 D5W 1/2 NS 40 meq KCL 50 NS (0.9%) 1433 mag 100 IVPB 741 NS (0.9%) 741 Medicated IV 102 insulin 33 precedex 69 Output: Urine 200 [place] 765 185 Labs: Laboratory Results - last 24 hr 08/30/19 08/30/19 08/30/19 16:03 16:11 16:11 WBC 11.4 H RBC 4.80 Hgb 15.1 Hct 49 H MCV 102 H MCH 31 MCHC 31 RDW 16 H Plt Count 158 MPV 10.9 H Neut % (Auto) 88.2 Lymph % (Auto) 5.4 [place] % (Auto) 6.3 Eos % (Auto) 0.0 Baso % (Auto) 0.1 Absolute Neuts (auto) 10.1 H Absolute Lymphs (auto) 0.6 L Absolute Monos (auto) 0.7 Absolute Eos (auto) 0.0 Absolute Basos (auto) 0.0 Absolute Nucleated RBC 0.0 Nucleated RBC % 0.0 INR (Anticoag Therapy) 0.87 APTT 26.0 VBG pH 7.26 L VBG pCO2 56 H VBG pO2 < 38.0 VBG HCO3 21.7 L VBG O2 Saturation 59.2 L VBG Base Excess -2.8 L Sodium Potassium Chloride Carbon Dioxide Anion Gap BUN Creatinine Est GFR ( Amer) Est GFR (Non-Af Amer) BUN/Creatinine Ratio Glucose POC Glucose (mg/dL) Glucose Meter Confirm Lactic Acid Calcium Phosphorus Magnesium Total Bilirubin AST ALT Alkaline Phosphatase Troponin I Total Protein Albumin Globulin Albumin/Globulin Ratio Urine Color Urine Appearance Urine pH Ur Specific [place] Urine Protein Urine Ketones Urine Blood Urine Nitrate Urine Bilirubin Urine Urobilinogen Ur Leukocyte Esterase Urine WBC (Auto) Urine RBC (Auto) Urine Bacteria Urine Glucose 08/30/19 08/30/19 08/30/19 16:11 16:11 16:12 WBC RBC Hgb Hct MCV MCH MCHC RDW Plt Count MPV Neut % (Auto) Lymph % (Auto) [place] % (Auto) Eos % (Auto) Baso % (Auto) Absolute Neuts (auto) Absolute Lymphs (auto) Absolute Monos (auto) Absolute Eos (auto) Absolute Basos (auto) Absolute Nucleated RBC Nucleated RBC % INR (Anticoag Therapy) APTT VBG pH VBG pCO2 VBG pO2 VBG HCO3 VBG O2 Saturation VBG Base Excess Sodium 140 Potassium 4.9 Chloride 103 Carbon Dioxide 25 Anion Gap 12 H BUN 74 H Creatinine 1.74 H Est GFR ( Amer) 34.5 Est GFR (Non-Af Amer) 28.5 BUN/Creatinine Ratio 42.5 H Glucose 1222 H* POC Glucose (mg/dL) > 444 H* Glucose Meter Confirm Lactic Acid 2.4 H* Calcium 8.6 Phosphorus Magnesium Total Bilirubin 0.60 AST 52 H ALT 35 Alkaline Phosphatase 103 Troponin I 0.06 H* Total Protein 6.7 Albumin 3.6 Globulin 3.1 Albumin/Globulin Ratio 1.2 Urine Color Urine Appearance Urine pH Ur Specific [place] Urine Protein Urine Ketones Urine Blood Urine Nitrate Urine Bilirubin Urine Urobilinogen Ur Leukocyte Esterase Urine WBC (Auto) Urine RBC (Auto) Urine Bacteria Urine Glucose 08/30/19 08/30/19 08/30/19 16:56 20:01 20:04 WBC RBC Hgb Hct MCV MCH MCHC RDW Plt Count MPV Neut % (Auto) Lymph % (Auto) [place] % (Auto) Eos % (Auto) Baso % (Auto) Absolute Neuts (auto) Absolute Lymphs (auto) Absolute Monos (auto) Absolute Eos (auto) Absolute Basos (auto) Absolute Nucleated RBC Nucleated RBC % INR (Anticoag Therapy) APTT VBG pH VBG pCO2 VBG pO2 VBG HCO3 VBG O2 Saturation VBG Base Excess Sodium 151 H D Potassium TNP Chloride 118 H Carbon Dioxide 22 Anion Gap 11 BUN 60 H Creatinine 1.41 H Est GFR ( Amer) 44.0 Est GFR (Non-Af Amer) 36.4 BUN/Creatinine Ratio 42.6 H Glucose 634 H* POC Glucose (mg/dL) > 444 H* Glucose Meter Confirm 631 H* Lactic Acid Calcium 8.2 L Phosphorus 2.1 L Magnesium TNP Total Bilirubin AST ALT Alkaline Phosphatase Troponin I 0.07 H* Total Protein Albumin Globulin Albumin/Globulin Ratio Urine Color Yellow Urine Appearance Clear Urine pH 5.0 Ur Specific [place] 1.028 Urine Protein Negative Urine Ketones Trace A Urine Blood Negative Urine Nitrate Negative Urine Bilirubin Negative Urine Urobilinogen Negative Ur Leukocyte Esterase Negative Urine WBC (Auto) Urine RBC (Auto) Urine Bacteria Urine Glucose 3+(>=500 mg/dl) A 08/30/19 08/30/19 08/30/19 21:17 21:30 21:39 WBC RBC Hgb Hct MCV MCH MCHC RDW Plt Count MPV Neut % (Auto) Lymph % (Auto) [place] % (Auto) Eos % (Auto) Baso % (Auto) Absolute Neuts (auto) Absolute Lymphs (auto) Absolute Monos (auto) Absolute Eos (auto) Absolute Basos (auto) Absolute Nucleated RBC Nucleated RBC % INR (Anticoag Therapy) APTT VBG pH VBG pCO2 VBG pO2 VBG HCO3 VBG O2 Saturation VBG Base Excess Sodium Potassium Chloride Carbon Dioxide Anion Gap BUN Creatinine Est GFR ( Amer) Est GFR (Non-Af Amer) BUN/Creatinine Ratio Glucose POC Glucose (mg/dL) > 444 H* Glucose Meter Confirm Lactic Acid 3.7 H* Calcium Phosphorus Magnesium Total Bilirubin AST ALT Alkaline Phosphatase Troponin I Total Protein Albumin Globulin Albumin/Globulin Ratio Urine Color Straw Urine Appearance Clear Urine pH 5.0 Ur Specific [place] 1.032 H Urine Protein Negative Urine Ketones Negative Urine Blood 2+ A Urine Nitrate Negative Urine Bilirubin Negative Urine Urobilinogen Negative Ur Leukocyte Esterase Trace A Urine WBC (Auto) Trace(0-5/hpf) Urine RBC (Auto) 1+(3-5/hpf) A Urine Bacteria 1+ A Urine Glucose 3+(>=500 mg/dl) A 08/30/19 08/30/19 08/31/19 21:39 23:22 00:20 WBC RBC Hgb Hct MCV MCH MCHC RDW Plt Count MPV Neut % (Auto) Lymph % (Auto) [place] % (Auto) Eos % (Auto) Baso % (Auto) Absolute Neuts (auto) Absolute Lymphs (auto) Absolute Monos (auto) Absolute Eos (auto) Absolute Basos (auto) Absolute Nucleated RBC Nucleated RBC % INR (Anticoag Therapy) APTT VBG pH VBG pCO2 VBG pO2 VBG HCO3 VBG O2 Saturation VBG Base Excess Sodium Potassium 4.3 Chloride Carbon Dioxide Anion Gap BUN Creatinine Est GFR ( Amer) Est GFR (Non-Af Amer) BUN/Creatinine Ratio Glucose POC Glucose (mg/dL) 230 H 175 H Glucose Meter Confirm 568 H* Lactic Acid Calcium Phosphorus Magnesium 3.1 H Total Bilirubin AST ALT Alkaline Phosphatase Troponin I Total Protein Albumin Globulin Albumin/Globulin Ratio Urine Color Urine Appearance Urine pH Ur Specific [place] Urine Protein Urine Ketones Urine Blood Urine Nitrate Urine Bilirubin Urine Urobilinogen Ur Leukocyte Esterase Urine WBC (Auto) Urine RBC (Auto) Urine Bacteria Urine Glucose 08/31/19 08/31/19 08/31/19 01:06 02:19 03:22 WBC RBC Hgb Hct MCV MCH MCHC RDW Plt Count MPV Neut % (Auto) Lymph % (Auto) [place] % (Auto) Eos % (Auto) Baso % (Auto) Absolute Neuts (auto) Absolute Lymphs (auto) Absolute Monos (auto) Absolute Eos (auto) Absolute Basos (auto) Absolute Nucleated RBC Nucleated RBC % INR (Anticoag Therapy) APTT VBG pH VBG pCO2 VBG pO2 VBG HCO3 VBG O2 Saturation VBG Base Excess Sodium Potassium Chloride Carbon Dioxide Anion Gap BUN Creatinine Est GFR ( Amer) Est GFR (Non-Af Amer) BUN/Creatinine Ratio Glucose POC Glucose (mg/dL) 212 H 259 H 272 H Glucose Meter Confirm Lactic Acid Calcium Phosphorus Magnesium Total Bilirubin AST ALT Alkaline Phosphatase Troponin I Total Protein Albumin Globulin Albumin/Globulin Ratio Urine Color Urine Appearance Urine pH Ur Specific [place] Urine Protein Urine Ketones Urine Blood Urine Nitrate Urine Bilirubin Urine Urobilinogen Ur Leukocyte Esterase Urine WBC (Auto) Urine RBC (Auto) Urine Bacteria Urine Glucose 08/31/19 08/31/19 08/31/19 04:03 04:03 05:37 WBC 9.4 RBC 4.26 Hgb 13.2 Hct 41 MCV 96 MCH 31 MCHC 32 RDW 15 Plt Count 122 L MPV 9.9 Neut % (Auto) 79.2 Lymph % (Auto) 14.1 [place] % (Auto) 6.1 Eos % (Auto) 0.3 Baso % (Auto) 0.3 Absolute Neuts (auto) 7.4 Absolute Lymphs (auto) 1.3 Absolute Monos (auto) 0.6 Absolute Eos (auto) 0.0 Absolute Basos (auto) 0.0 Absolute Nucleated RBC 0.0 Nucleated RBC % 0.0 INR (Anticoag Therapy) APTT VBG pH VBG pCO2 VBG pO2 VBG HCO3 VBG O2 Saturation VBG Base Excess Sodium 155 H Potassium 4.0 Chloride 127 H Carbon Dioxide 25 Anion Gap 3 BUN 48 H Creatinine 0.98 H Est GFR ( Amer) 66.9 Est GFR (Non-Af Amer) 55.3 BUN/Creatinine Ratio 49.0 H Glucose 260 H POC Glucose (mg/dL) 326 H Glucose Meter Confirm Lactic Acid Calcium 7.5 L Phosphorus 1.8 L Magnesium 2.7 Total Bilirubin AST ALT Alkaline Phosphatase Troponin I 0.08 H* Total Protein Albumin Globulin Albumin/Globulin Ratio Urine Color Urine Appearance Urine pH Ur Specific [place] Urine Protein Urine Ketones Urine Blood Urine Nitrate Urine Bilirubin Urine Urobilinogen Ur Leukocyte Esterase Urine WBC (Auto) Urine RBC (Auto) Urine Bacteria Urine Glucose 08/31/19 08/31/19 08/31/19 06:09 07:33 08:43 WBC RBC Hgb Hct MCV MCH MCHC RDW Plt Count MPV Neut % (Auto) Lymph % (Auto) [place] % (Auto) Eos % (Auto) Baso % (Auto) Absolute Neuts (auto) Absolute Lymphs (auto) Absolute Monos (auto) Absolute Eos (auto) Absolute Basos (auto) Absolute Nucleated RBC Nucleated RBC % INR (Anticoag Therapy) APTT VBG pH VBG pCO2 VBG pO2 VBG HCO3 VBG O2 Saturation VBG Base Excess Sodium Potassium Chloride Carbon Dioxide Anion Gap BUN Creatinine Est GFR ( Amer) Est GFR (Non-Af Amer) BUN/Creatinine Ratio Glucose POC Glucose (mg/dL) 315 H 244 H 269 H Glucose Meter Confirm Lactic Acid Calcium Phosphorus Magnesium Total Bilirubin AST ALT Alkaline Phosphatase Troponin I Total Protein Albumin Globulin Albumin/Globulin Ratio Urine Color Urine Appearance Urine pH Ur Specific [place] Urine Protein Urine Ketones Urine Blood Urine Nitrate Urine Bilirubin Urine Urobilinogen Ur Leukocyte Esterase Urine WBC (Auto) Urine RBC (Auto) Urine Bacteria Urine Glucose 08/31/19 08/31/19 08/31/19 09:42 10:41 11:26 WBC RBC Hgb Hct MCV MCH MCHC RDW Plt Count MPV Neut % (Auto) Lymph % (Auto) [place] % (Auto) Eos % (Auto) Baso % (Auto) Absolute Neuts (auto) Absolute Lymphs (auto) Absolute Monos (auto) Absolute Eos (auto) Absolute Basos (auto) Absolute Nucleated RBC Nucleated RBC % INR (Anticoag Therapy) APTT VBG pH VBG pCO2 VBG pO2 VBG HCO3 VBG O2 Saturation VBG Base Excess Sodium Potassium Chloride Carbon Dioxide Anion Gap BUN Creatinine Est GFR ( Amer) Est GFR (Non-Af Amer) BUN/Creatinine Ratio Glucose POC Glucose (mg/dL) 232 H 200 H 164 H Glucose Meter Confirm Lactic Acid Calcium Phosphorus Magnesium Total Bilirubin AST ALT Alkaline Phosphatase Troponin I Total Protein Albumin Globulin Albumin/Globulin Ratio Urine Color Urine Appearance Urine pH Ur Specific [place] Urine Protein Urine Ketones Urine Blood Urine Nitrate Urine Bilirubin Urine Urobilinogen Ur Leukocyte Esterase Urine WBC (Auto) Urine RBC (Auto) Urine Bacteria Urine Glucose 08/31/19 08/31/19 08/31/19 12:35 13:39 14:44 WBC RBC Hgb Hct MCV MCH MCHC RDW Plt Count MPV Neut % (Auto) Lymph % (Auto) [place] % (Auto) Eos % (Auto) Baso % (Auto) Absolute Neuts (auto) Absolute Lymphs (auto) Absolute Monos (auto) Absolute Eos (auto) Absolute Basos (auto) Absolute Nucleated RBC Nucleated RBC % INR (Anticoag Therapy) APTT VBG pH VBG pCO2 VBG pO2 VBG HCO3 VBG O2 Saturation VBG Base Excess Sodium Potassium Chloride Carbon Dioxide Anion Gap BUN Creatinine Est GFR ( Amer) Est GFR (Non-Af Amer) BUN/Creatinine Ratio Glucose POC Glucose (mg/dL) 205 H 219 H 150 H Glucose Meter Confirm Lactic Acid Calcium Phosphorus Magnesium Total Bilirubin AST ALT Alkaline Phosphatase Troponin I Total Protein Albumin Globulin Albumin/Globulin Ratio Urine Color Urine Appearance Urine pH Ur Specific [place] Urine Protein Urine Ketones Urine Blood Urine Nitrate Urine Bilirubin Urine Urobilinogen Ur Leukocyte Esterase Urine WBC (Auto) Urine RBC (Auto) Urine Bacteria Urine Glucose Nutrition: NPO Impression: 73F with HHS, which is improving. HHS KEVIN AMS Dementia DM type 2 Hyperlipidemia Plan: Neuro: Correcting metabolic derangements. Delirium precautions. H/o dementia but baseline mental status unknown CV: Troponin elevated on admission, up to 0.08 this morning. No EKG changes. Will trend. Keep MAP >65. Respiratory: On room air. Maintain O2 sat >90% and wean FiO2 as needed. Pulmonary toilet. GI: NPO. Need swallow eval. GI ppx: not indicated. Renal: [place] for strict I&Os KEVIN resolved, Cr normal. IVF switched to D5-1/2NS Phosphorus replacement and recheck. Follow BMP to monitor hypernatremia and glucose. ID: Afebrile and leukocytosis resolved. UA and blood cultures pending. Heme: H&H stable. DVT ppx: SCDs Endo: Insulin gtt with POC blood glucose q1h. MSK: Activity as tolerated. Wounds: none Code status: DNR/DNI Status: Critical Dispo: ICU for close monitoring of HHS Critical Care Time: 30 min
--- NOTE | 2019-08-31 16:25 | OP ---
Operative Report - Blank - Operative Report Date of Operation: 08/31/19 Note: PRE-OPERATIVE DIAGNOSIS: Hyperosmolar hyperglycemic state POST-OPERATIVE DIAGNOSIS: Same PROCEDURE: Right subclavian central line placement SURGEON: Deja Mcdonald MD ANESTHESIA: Local INDICATION: Merced Guadalupe is a 73 year-old woman with dementia and diabetes who was admitted for [facility]. She requires frequent blood draws to monitor glucose and electrolytes. However, the medical team has not been able to collect blood for lab work. The patient is confused today and does not have insight into her current medical condition. She is a resident of [facility] ([facility] The facility does not have health care proxy paperwork, although her brother is listed as health care proxy. The patient has a daughter who reportedly is unable to make decisions. Due to the medical need for frequent blood draws and IV access, a central line was placed emergently. DESCRIPTION: The patient was placed in Trendelenburg position. The right neck and upper chest were prepped and draped in the usual sterile fashion. She was given Ativan 1mg for the procedure due to agitation. A time out was called confirming the patient's name, date of , and procedure. The right subclavian vein was cannulated with a needle. A 7 Fr triple lumen catheter was placed using Seldinger technique. The catheter was advanced to 17 cm at the skin. All ports juan ramon back blood and flushed easily. A BioPatch was placed at the insertion site. The catheter was secured with 3-0 silk sutures. A sterile dressing was placed over the catheter. CXR confirmed correct position of the catheter.
[2019-08-31 17:39] LABS: Troponin I 0.07 ng/mL (<0.03)
[2019-08-31 18:46] LABS: BUN/Creatinine Ratio 49.3 (8-20); Blood Urea Nitrogen 37 mg/dL (6-24); CO2 Carbon Dioxide 22 mmol/L (22-32); Calcium 7.2 mg/dL (8.6-10.3); EGFR African American 91.2 (>60); EGFR Non-African American 75.3 (>60); Glucose 306 mg/dL (70-100); Magnesium 2.3 mg/dL (1.9-2.7); Phosphorus 1.6 mg/dL (2.5-5.0); Potassium 4.5 mmol/L (3.5-5.0)
[2019-08-31 18:54] LABS: Anion Gap 6 mmol/L (2-11); Chloride 128 mmol/L (101-111); Sodium 156 mmol/L (135-145)
[2019-08-31] MEDS: Docusate CAP* 100 MG PO SCH (21:29)
[2019-08-31] MEDS: Senna TAB 8.6 mg* TAB PO SCH (21:30)
[2019-08-31 22:44] LABS: Calcium 7.2 mg/dL (8.6-10.3); EGFR African American 87.1 (>60); Magnesium 2.2 mg/dL (1.9-2.7); Phosphorus 1.7 mg/dL (2.5-5.0); Potassium 4.4 mmol/L (3.5-5.0)
[2019-09-01] MEDS ORDERED: Chlorhexidine MOUTHWASH 0.12%* 15 ML UDC SWISH SPIT ONE (00:56)
[2019-09-01] MEDS ORDERED: LORazepam INJ* 2 MG/ML 1 ML VIAL IV PUSH ONE (02:40)
[2019-09-01] MEDS ORDERED: LORazepam INJ* 2 MG/ML 1 ML VIAL ONE (02:55)
[2019-09-01] MEDS: D5W 1/2 NS KCl 20 Meq 1000 ML* 1,000 ML IV SCH (03:10)
[2019-09-01 03:50] LABS: BUN/Creatinine Ratio 40.6 (8-20); EGFR African American 100.4 (>60); EGFR Non-African American 82.9 (>60); Magnesium 2.2 mg/dL (1.9-2.7); Phosphorus 1.9 mg/dL (2.5-5.0); Potassium 4.2 mmol/L (3.5-5.0)
--- NOTE | 2019-09-01 09:41 | PN ---
Date of Service: 09/01/19 Critical Care Services: Improved overall, still mildly hyperosmolar Vital Signs: Temp Pulse Resp BP SpO2 FiO2 35.4 C 65 16 85/56 95 09/01/19 06:30 09/01/19 06:30 09/01/19 06:30 09/01/19 06:30 09/01/19 06:30 Physical Exam: Gen: rouses, some confusion, sleeping comfortably at this time HEENT: NCAT Lungs: scant rhonchi Cardiac: S1S2 regular Abdomen: soft, obese, NT, ND, +BS Extremities: no edema Neuro: grossly intact Fluid Balance (Past 24 Hours): I= O= Net Intake & Output 08/30/19 08/31/19 09/01/19 09/02/19 06:59 06:59 06:59 06:59 Intake Total 2426 3514.3 Output Total 965 1000 275 Balance 1461 2514.3 -275 Weight 76.022 kg 76.204 kg Intake: IV Fluids 1583 2119.4 D5W 1/2 NS 20 meq KCL 2028 D5W 1/2 NS 40 meq KCL 50 NS (0.9%) 1433 22.7 Potassium Phosphate 68.7 mag 100 IVPB 741 1261 D5W 1/2 NS 20 meq KCL 1053 NS (0.9%) 741 Potassium Phosphate 208 Medicated IV 102 133.9 insulin 33 48.8 precedex 69 85.1 Output: Urine 200 [place] 765 1000 275 Labs: Laboratory Results - last 24 hr 08/31/19 08/31/19 08/31/19 09:42 10:41 11:26 Sodium Potassium Chloride Carbon Dioxide Anion Gap BUN Creatinine Est GFR ( Amer) Est GFR (Non-Af Amer) BUN/Creatinine Ratio Glucose POC Glucose (mg/dL) 232 H 200 H 164 H Calcium Phosphorus Magnesium Troponin I 08/31/19 08/31/19 08/31/19 12:35 13:39 14:44 Sodium Potassium Chloride Carbon Dioxide Anion Gap BUN Creatinine Est GFR ( Amer) Est GFR (Non-Af Amer) BUN/Creatinine Ratio Glucose POC Glucose (mg/dL) 205 H 219 H 150 H Calcium Phosphorus Magnesium Troponin I 08/31/19 08/31/19 08/31/19 15:37 16:43 17:00 Sodium 156 H* Potassium 4.5 Chloride 128 H Carbon Dioxide 22 Anion Gap 6 BUN 37 H Creatinine 0.75 Est GFR ( Amer) 91.2 Est GFR (Non-Af Amer) 75.3 BUN/Creatinine Ratio 49.3 H Glucose 306 H POC Glucose (mg/dL) 296 H 294 H Calcium 7.2 L Phosphorus 1.6 L Magnesium 2.3 Troponin I 0.07 H* 08/31/19 08/31/19 08/31/19 17:44 18:23 19:43 Sodium Potassium Chloride Carbon Dioxide Anion Gap BUN Creatinine Est GFR ( Amer) Est GFR (Non-Af Amer) BUN/Creatinine Ratio Glucose POC Glucose (mg/dL) 400 H 346 H 329 H Calcium Phosphorus Magnesium Troponin I 08/31/19 08/31/19 08/31/19 20:20 21:10 22:06 Sodium Potassium Chloride Carbon Dioxide Anion Gap BUN Creatinine Est GFR ( Amer) Est GFR (Non-Af Amer) BUN/Creatinine Ratio Glucose POC Glucose (mg/dL) 333 H 307 H 303 H Calcium Phosphorus Magnesium Troponin I 08/31/19 08/31/19 09/01/19 22:13 23:24 00:17 Sodium 154 H Potassium 4.4 Chloride 126 H Carbon Dioxide 24 Anion Gap 4 BUN 32 H Creatinine 0.78 Est GFR ( Amer) 87.1 Est GFR (Non-Af Amer) 72.0 BUN/Creatinine Ratio 41.0 H Glucose 302 H POC Glucose (mg/dL) 313 H 243 H Calcium 7.2 L Phosphorus 1.7 L Magnesium 2.2 Troponin I 09/01/19 09/01/19 09/01/19 01:10 02:20 03:10 Sodium Potassium Chloride Carbon Dioxide Anion Gap BUN Creatinine Est GFR ( Amer) Est GFR (Non-Af Amer) BUN/Creatinine Ratio Glucose POC Glucose (mg/dL) 193 H 167 H 160 H Calcium Phosphorus Magnesium Troponin I 09/01/19 09/01/19 09/01/19 03:18 05:14 06:25 Sodium 153 H Potassium 4.2 Chloride 128 H Carbon Dioxide 23 Anion Gap 2 BUN 28 H Creatinine 0.69 Est GFR ( Amer) 100.4 Est GFR (Non-Af Amer) 82.9 BUN/Creatinine Ratio 40.6 H Glucose 141 H POC Glucose (mg/dL) 279 H 334 H Calcium 7.0 L Phosphorus 1.9 L Magnesium 2.2 Troponin I 09/01/19 09/01/19 07:14 07:56 Sodium Potassium Chloride Carbon Dioxide Anion Gap BUN Creatinine Est GFR ( Amer) Est GFR (Non-Af Amer) BUN/Creatinine Ratio Glucose POC Glucose (mg/dL) 362 H 392 H Calcium Phosphorus Magnesium Troponin I Studies: CXR clear with RSC TLC in position Nutrition: Tolerating PO Impression: HHS improving Plan: HHS - calculated osmolality near 380 on admission ( almost 70 mOsm from glucose alone plus 30 from the BUN ) Her hypernatremia is expected and should be welcomed. Her admission Na was NORMAL with a measured glucose of 1222. This represents profound hyperosmolarity on its face and calculates as above. When the Na goes up in this scenario its a good thing because correction of glucose from 1222 to 160 is over 50 mOsm which is equivalent to 25 mEq Na/L. Therefore if the glucose falls by a 1000 and the Na goes up by 25 we are equiosmolar. The fact that it went up less than 25 shows that we are appropriately slowly hydrating and that the overall osmolality is falling but at a controlled rate. Rapid administration to correct the very chronic free water deficit and hyperosmolarity here is not the goal. IDDM - will start lantus and SSIC. KEVIN - improved with hydration OK to floor.
[2019-09-01] MEDS ORDERED: Dextrose 50% Syringe 50 ML* 25 GM/50 ML SYRINGE IV PUSH PRN (09:48)
[2019-09-01] MEDS ORDERED: Insulin GLARGINE(*) 1 UNITS UNIT SUBCUT SCH (10:00)
[2019-09-01] MEDS: Atorvastatin* 40 MG TAB PO SCH (10:02)
[2019-09-01] MEDS ORDERED: Insulin GLARGINE(*) 1 UNITS UNIT ONE (10:06)
[2019-09-01] MEDS: Nystatin OINT* 15 GM TOPICAL SCH (10:13)
[2019-09-01 10:59] LABS: BUN/Creatinine Ratio 34.3 (8-20); Calcium 7.1 mg/dL (8.6-10.3); EGFR African American 103.8 (>60); EGFR Non-African American 85.8 (>60); Magnesium 2.1 mg/dL (1.9-2.7); Phosphorus 1.6 mg/dL (2.5-5.0); Potassium 4.6 mmol/L (3.5-5.0)
[2019-09-01] MEDS: Insulin LISPRO* 1 UNITS UNIT SUBCUT SCH ×3 (12:24→23:56)
[2019-09-01] MEDS: cefTRIAXone(*) 1 GM in NS 0.9% 50 ML* 50 ML IVPB SCH (12:28)
[2019-09-01] MEDS ORDERED: Potassium Phosphate IV* 15 MMOLE in NS 0.9% 250 ML* 250 ML IVPB ONE (13:31)
[2019-09-01 16:38] LABS: BUN/Creatinine Ratio 30.4 (8-20); Calcium 7.4 mg/dL (8.6-10.3); EGFR African American 100.4 (>60); EGFR Non-African American 82.9 (>60); Phosphorus 1.7 mg/dL (2.5-5.0)
[2019-09-01] MEDS: Senna TAB 8.6 mg* TAB PO SCH (22:12)
[2019-09-01] MEDS: Docusate CAP* 100 MG PO SCH (22:12)
[2019-09-02] MEDS: Nystatin OINT* 15 GM TOPICAL SCH ×3 (02:43→23:27)
[2019-09-02] MEDS: Insulin LISPRO* 1 UNITS UNIT SUBCUT SCH ×6 (02:57→20:43)
[2019-09-02 06:17] LABS: Calcium 7.3 mg/dL (8.6-10.3)
[2019-09-02 06:23] LABS: BUN/Creatinine Ratio 24.7 (8-20); EGFR Non-African American 77.7 (>60); Phosphorus 1.9 mg/dL (2.5-5.0)
[2019-09-02] MEDS ORDERED: NS 0.45% 1000 ML BAG* 1,000 ML IV SCH (08:00)
[2019-09-02] MEDS: Lisinopril TAB* 5 MG PO SCH (08:54)
[2019-09-02] MEDS: Insulin GLARGINE(*) 1 UNITS UNIT SUBCUT SCH (11:02)
[2019-09-02] MEDS: cefTRIAXone(*) 1 GM in NS 0.9% 50 ML* 50 ML IVPB SCH (11:37)
--- NOTE | 2019-09-02 16:27 | PN ---
Subjective Date of Service: 09/02/19 Interval History: Merced remained to be confused. She could only tell her name and she is in hospital, not aware of what happened to her or date or year. She was trying to pull out her central line at night, she had a sitter monitoring her at bedside. Her glucose level is coming down nicely, around 120. Objective Active Medications: Atorvastatin Calcium (Lipitor*) 40 mg PO EVERY OTHER DAY [facility] Last Admin: 09/01/19 10:02 Dose: Not Given Dextrose (D50w Syringe 50 Ml*) 12.5 gm IV PUSH .FOR FS < 60 - SS PRN PRN Reason: FS < 60 Ceftriaxone Sodium 1 gm/ (Sodium Chloride) 50 mls @ 100 mls/hr IVPB Q24H [facility] Stop: 09/03/19 13:00 Last Admin: 09/02/19 11:37 Dose: 100 mls/hr Sodium Chloride (Ns 0.45% 1000 Ml Bag*) 1,000 mls @ 100 mls/hr IV PER RATE [facility] Stop: 09/02/19 17:59 Last Admin: 09/02/19 07:49 Dose: 100 mls/hr Insulin Glargine (Lantus(*)) 10 units SUBCUT Q24H [facility] Last Admin: 09/02/19 11:02 Dose: 10 units Insulin Human Lispro (Humalog*) 0 units SUBCUT Q4HR [facility]; Protocol Last Admin: 09/02/19 14:26 Dose: Not Given Lisinopril (Prinivil Tab*) 5 mg PO DAILY [facility] Last Admin: 09/02/19 08:54 Dose: Not Given Nystatin (Nystatin Oint*) 1 applic TOPICAL BID [facility] Last Admin: 09/02/19 10:47 Dose: 1 applic Senna (Senokot 8.6 Mg Tab*) 1 tab PO BEDTIME [facility] Last Admin: 09/01/19 22:12 Dose: Not Given Vital Signs - 8 hr 09/02/19 12:05 Temperature 98.8 F Pulse Rate 83 Respiratory 20 Rate Blood Pressure 164/69 (mmHg) O2 Sat by Pulse 100 Oximetry Oxygen Devices in Use Now: None Exam: Appearance: 73 y/o female, confused, lying on bed, peeling her finger skin Respiratory: Symmetrical Chest Expansion and Respiratory Effort, clear on auscultation Neck: central line in place Cardiovascular: NL Sounds; No Murmurs; No JVD, RRR Abdominal: NL Sounds; No Tenderness; No Distention, No Hepatosplenomegaly Extremities: no swelling, no cyanosis, warm extremities Neurological: confused, not oriented to time, person, only oriented to general location "hospital" Urological : [place] in situ Result Diagrams: 08/31/19 04:03 09/02/19 05:59 Assess/Plan/Problems-Billing Assessment: Merced Guadalupe is a 73 y/o female from [facility] with history of T2DM , HTN, dementia, presented with altered mental status, found to have hyperosmolar hyperglycemic status with glucose 1200+ with possible NPH in CT brain. Her course complicated by Kleb Pneum urine tract infection. - Patient Problems (1) Altered mental status Current Visit: No Status: Acute Code(s): R41.82 - ALTERED MENTAL STATUS, UNSPECIFIED SNOMED Code(s): 486786858 Comment: - Multifactorial, combination of UTI, HHS, ?NPH and history of dementia - I don't think it will help much to prove or disapprove her NPH since she has been in this advanced status for long - need to have a care discussion with family regarding placement on discharge (2) Hyperosmolar hyperglycemic coma due to diabetes mellitus without ketoacidosis Current Visit: Yes Status: Acute Code(s): E11.01 - TYPE 2 DIABETES MELLITUS WITH HYPEROSMOLARITY WITH COMA SNOMED Code(s): 953238280 Comment: - came in with glucose 1200+, high osm but no acidosis - now glucose coming down, but still mild hyperosmolar with hypernatremia, which is expected. I am going to give small amount of 0.45% NS to help with the osmolality today, need to watch and not to drop Na too fast. (3) Dementia Current Visit: No Status: Acute Code(s): F03.90 - UNSPECIFIED DEMENTIA WITHOUT BEHAVIORAL DISTURBANCE SNOMED Code(s): 48398893 Comment: - Continue supportive care (4) Diabetes mellitus Current Visit: No Status: Acute Code(s): E11.9 - TYPE 2 DIABETES MELLITUS WITHOUT COMPLICATIONS SNOMED Code(s): 14476800 Comment: - glucose 114 this morning - continue lantus 10U for now - restart Trulicity and metformin when she is improving, I will hold off pioglitazone/metformin on dicharge (5) Urinary tract infection Current Visit: No Status: Acute Comment: - klebsiella in culture, treated with ceftriaxone (09/01/19) inpatient. (6) Hyperlipidemia Current Visit: No Status: Acute Code(s): E78.5 - HYPERLIPIDEMIA, UNSPECIFIED SNOMED Code(s): 74553073 Comment: -Continue atorvastatin (7) Hypertension Current Visit: No Status: Acute Code(s): I10 - ESSENTIAL (PRIMARY) HYPERTENSION SNOMED Code(s): 99425628 Comment: -Moderate control -Continue lisinopril 5 (8) DVT prophylaxis Current Visit: No Status: Acute Code(s): Z29.9 - ENCOUNTER FOR PROPHYLACTIC MEASURES, UNSPECIFIED SNOMED Code(s): 567704650 Comment: -Lovenox Status and Disposition: Inpatient Medicine. Explore placement issues. Attestation Documenting Resident: Christine Dumont Supervising Physician: Evelyn Au Attending/Supervising Physician Comment: Remains AOx1 (knows daughter). Denies all complaints. HHS resolved. Pending normalization of sodium with 1/2 NS. Attestation: This service has been performed in part by a resident under the direction of a teaching physician.I, Evelyn Au, performed the service, or was physically present during the critical, or stephens portions of the service, furnished by the resident. I participated in the management of the patient.
[2019-09-02] MEDS: Enoxaparin(*) 40 MG/0.4 ML SYR SUBCUT SCH (18:01)
[2019-09-02] MEDS: Senna TAB 8.6 mg* TAB PO SCH (20:41)
[2019-09-02] MEDS ORDERED: Potassium Acid Phosphate TAB* 500 MG PO SCH (21:00)
[2019-09-03] MEDS: Insulin LISPRO* 1 UNITS UNIT SUBCUT SCH ×7 (03:04→22:07)
[2019-09-03 07:53] LABS: BUN/Creatinine Ratio 13.6 (8-20); Calcium 7.7 mg/dL (8.6-10.3); EGFR African American 105.6 (>60); EGFR Non-African American 87.3 (>60); Potassium 3.6 mmol/L (3.5-5.0)
[2019-09-03] MEDS: Lisinopril TAB* 5 MG PO SCH (08:59)
[2019-09-03] MEDS: Atorvastatin* 40 MG TAB PO SCH (08:59)
[2019-09-03] MEDS ORDERED: Dulaglutide (NF) 0.75 MG/0.5 ML SYRINGE SUBCUT SCH (09:00)
[2019-09-03] MEDS ORDERED: Insulin LISPRO* 1 UNITS UNIT SUBCUT ONE ×3 (12:36→18:09)
[2019-09-03] MEDS: Insulin GLARGINE(*) 1 UNITS UNIT SUBCUT SCH (12:39)
[2019-09-03] MEDS: Nystatin OINT* 15 GM TOPICAL SCH ×2 (12:40→22:11)
--- NOTE | 2019-09-03 13:07 | DS ---
CC: Dr. Hans Nichols DATE OF ADMISSION: 08/30/2019. DATE OF DISCHARGE: 09/03/2019. PRIMARY CARE PHYSICIAN: Dr. Hans Nichols. PRIMARY DIAGNOSIS: 1. Hyperosmolar hyperglycemic state. 2. Uncontrolled type 2 diabetes. 3. Possible UTI. SECONDARY DIAGNOSES: 1. Dementia. 2. Hypertension. DISCHARGE MEDICATIONS: 1. Metformin 500 mg twice a day. 2. Insulin Glargine 15 units daily. 3. Dulaglutide 0.75 mg subcutaneous weekly. 4. Lisinopril 5 mg daily. 5. Atorvastatin 40 mg every other day. 6. Vitamin B12 injections 1,000 mcg monthly. 7. Senna Plus one tablet at bedtime as needed for constipation. 8. Milk of Magnesia 30 ml daily as needed for constipation. HISTORY OF PRESENT ILLNESS: Ms. Guadalupe is a 73-year-old woman with diabetes, dementia, and hypertension who was brought to the emergency room from her correction due to altered mental status. Information is limited given that the patient is significantly altered at the time of the interview and no information was sent from the patient's correction. HOSPITAL COURSE: In the emergency room, the patient's blood glucose on her basic metabolic panel was noted to be 1222. She was initiated on an insulin drip and given IV fluid bolus and admitted to the ICU for hyperosmotic hyperosmolar state. She underwent a head CT for altered mental status which showed no acute intracranial abnormality. The patient was given significant IV fluid repletion and her sodium, which initially was in the 150s, decreased down to normal over the course of four days. Her urinalysis was not very concerning for a UTI; however, it did reflux with culture showing klebsiella pneumoniae 50 to 75k SFU's sensitive to Ceftriaxone. While this is unlikely to have represented as a UTI, the patient did receive three doses of Ceftriaxone during admission. On the day of discharge, she was started on a more optimized home regimen for diabetes, including Metformin 500 twice a day, insulin Glargine 10 units daily, and she was continued on her home Dulaglutide subcutaneous injections weekly. Her Pioglitazone was discontinued. The patient continued to deny all symptoms throughout her hospitalization and remained pleasantly demented. A and O times one only, knowing the name of herself and her daughter , but not the president. PHYSICAL EXAMINATION: General: She is a well-appearing woman in no acute distress who is pleasant, alert, and interactive, frequently smiles. Afebrile, heart rate 80s, blood pressure 147/57, respiratory rate 16, oxygen saturation 96 percent on room air. HEENT: Moist mucus membranes. OP clear. Neck: Supple. No JVD. Heart: Regular rate and rhythm. No murmurs, gallops, or rubs. Lungs: Clear to auscultation bilaterally. Abdomen: Soft, nontender, nondistended. Extremities: Warm and well-perfused without evidence of edema. Neuro: A and O times one. Knows her daughter's name and knows she is in the hospital, has no focal deficits. DIAGNOSTIC STUDIES: 1. CBC unremarkable. 2. BMP unremarkable by the day of discharge with normal renal function. 3. Urine culture with 50 to 75,[address] klebs[address] pneumoniae[address] 4[address] Brain CT without contrast without acute intracranial abnormality; generalized ventriculomegaly in the context of sulcal prominence is usually outside [employer] of cerebral volume loss; however, with altered mental status, correlate for signs of NPH. 5. Chest x-ray: No acute cardiopulmonary process by radiograph. DISCHARGE PLAN: The patient will be discharged back to her nursing facility and she should have ongoing primary care for her uncontrolled diabetes. A hemoglobin A1c checked on August 09 was 12.8 percent, which is a notable increase from the prior month where it was 11.7, and over the summer when her hemoglobin A1c was 7.5%. It is unclear if the patient has had dietary changes or instead if she has not been taking her home medications. Her Pioglitazone was discontinued, but she should continue on her home Metformin and Dulaglutide doses, and she had insulin Glargine added to her home regimen. This should be titrated as necessary based off of her blood glucose and subsequent HgbA1c. She should continue to have daily blood glucose monitoring and she should adhere to a strict low carb, low sugar diet. The patient was given return precautions which include, but are not limited to worsening mental status, fever, or new symptoms of pain. DIET: Low carbohydrate. ACTIVITY: As tolerated. DISPOSITION: To [facility], [place]. CONDITION ON DISCHARGE: Improved. TIME SPENT: Approximately 60 minutes were spent on the discharge of this patient, more than half of which was spent with care coordination at bedside for interview and exam. [id number]/[facility] #: [id number] BRIAN
[2019-09-03] MEDS ORDERED: Dextrose 50% Syringe 50 ML* 25 GM/50 ML SYRINGE IV PUSH PRN (14:29)
[2019-09-03] MEDS ORDERED: Insulin GLARGINE(*) 1 UNITS UNIT SUBCUT SCH (16:57)
--- NOTE | 2019-09-03 17:05 | PN ---
Subjective Date of Service: 09/03/19 Interval History: Patient was much alert and interactive today. Although she is still not oriented to time or person, she demonstrated significant short term memory loss (tell me her daughter's name repeatedly). She is having a great appetite, noticed that she finished ice cream, and the whole plate today. She was supposed to get transferred back to [facility] today, however her sugar is high pre lunch at 400s, sliding scale was given, and daily lantus daily was also increased. right subclavian catheter was removed at 1300pm by myself under aseptic technique, 3 sutures removed, no bleeding post procedure, and dressing applied. Objective Active Medications: Atorvastatin Calcium (Lipitor*) 40 mg PO EVERY OTHER DAY [facility] Last Admin: 09/03/19 08:59 Dose: 40 mg Dextrose (D50w Syringe 50 Ml*) 12.5 gm IV PUSH .FOR FS < 60 - SS PRN PRN Reason: FS < 60 Dulaglutide (Trulicity (Nf)) 0.75 mg SUBCUT WEEKLY [facility] Enoxaparin Sodium (Lovenox(*)) 40 mg SUBCUT Q24H [facility] Last Admin: 09/02/19 18:01 Dose: 40 mg Insulin Glargine (Lantus(*)) 15 units SUBCUT Q24H [facility] Insulin Human Lispro (Humalog*) 0 units SUBCUT AC [facility]; Protocol Last Admin: 09/03/19 15:58 Dose: 15 units Lisinopril (Prinivil Tab*) 5 mg PO DAILY [facility] Last Admin: 09/03/19 08:59 Dose: 5 mg Metformin HCl (Glucophage*) 500 mg PO 0800,1700 [facility] Nystatin (Nystatin Oint*) 1 applic TOPICAL BID [facility] Last Admin: 09/03/19 12:40 Dose: 1 applic Senna (Senokot 8.6 Mg Tab*) 1 tab PO BEDTIME [facility] Last Admin: 09/02/19 20:41 Dose: 1 tab Oxygen Devices in Use Now: None Exam: Appearance: 73 y/o female, alert and interactive, sitting up on bed Respiratory: Symmetrical Chest Expansion and Respiratory Effort, clear on auscultation Neck: central line removed- tagderm dresssing seen, no bleeding seen. Cardiovascular: NL Sounds; No Murmurs; No JVD, RRR Abdominal: NL Sounds; No Tenderness; No Distention, No Hepatosplenomegaly Extremities: no swelling, no cyanosis, warm extremities Neurological: STML, not oriented to time, person, only oriented to general location "hospital" Result Diagrams: 08/31/19 04:03 09/03/19 06:35 Assess/Plan/Problems-Billing Assessment: Merced Guadalupe is a 73 y/o female from [facility], [place] with history of T2DM , HTN, dementia, presented with altered mental status, found to have hyperosmolar hyperglycemic status with glucose 1200+, HbA1c 12% likely due to poor diet control, and poor DM control. Her course complicated by Kleb Pneum urine tract infection . - Patient Problems (1) Altered mental status Current Visit: No Status: Acute Code(s): R41.82 - ALTERED MENTAL STATUS, UNSPECIFIED SNOMED Code(s): 820847901 Comment: - Multifactorial, combination of UTI, HHS, ?NPH and history of dementia - I don't think it will help much to prove or disapprove her NPH since she has been in this advanced status for long - resolved, likely back to baseline although not much information regarding her baseline (2) Hyperosmolar hyperglycemic coma due to diabetes mellitus without ketoacidosis Current Visit: Yes Status: Acute Code(s): E11.01 - TYPE 2 DIABETES MELLITUS WITH HYPEROSMOLARITY WITH COMA SNOMED Code(s): 545100193 Comment: - came in with glucose 1200+, high osm but no acidosis - Na normalized today with osm normalized - encourage patient keep good hydration - glucose still not well controlled, continue to watch glucose overnight - lantus dose increased to 15U, plus oral diabetic including metformin and Trulicity (3) Diabetes mellitus Current Visit: No Status: Acute Code(s): E11.9 - TYPE 2 DIABETES MELLITUS WITHOUT COMPLICATIONS SNOMED Code(s): 59675125 Comment: - glucose 400+ pre lunch today, likely due to high carbonhydrate food intake (ice cream, potato etc) - increase lantus to 15U - restart Trulicity and metformin (4) Dementia Current Visit: No Status: Acute Code(s): F03.90 - UNSPECIFIED DEMENTIA WITHOUT BEHAVIORAL DISTURBANCE SNOMED Code(s): 08734084 Comment: - Continue supportive care (5) Urinary tract infection Current Visit: No Status: Acute Comment: - klebsiella in culture, treated with ceftriaxone 3 doses inpatient. (6) Hyperlipidemia Current Visit: No Status: Acute Code(s): E78.5 - HYPERLIPIDEMIA, UNSPECIFIED SNOMED Code(s): 53138189 Comment: -Continue atorvastatin (7) Hypertension Current Visit: No Status: Acute Code(s): I10 - ESSENTIAL (PRIMARY) HYPERTENSION SNOMED Code(s): 93589287 Comment: -Moderate control -Continue lisinopril 5 (8) DVT prophylaxis Current Visit: No Status: Acute Code(s): Z29.9 - ENCOUNTER FOR PROPHYLACTIC MEASURES, UNSPECIFIED SNOMED Code(s): 581797988 Comment: -SC Lovenox Status and Disposition: Inpatient Medicine. Transfer back to [facility] when glucose better controlled. Attestation Documenting Resident: Christine Dumont Supervising Physician: Evelyn Au Attestation: This service has been performed in part by a resident under the direction of a teaching physician.I, Evelyn Au, performed the service, or was physically present during the critical, or stephens portions of the service, furnished by the resident. I participated in the management of the patient.
[2019-09-03] MEDS: Enoxaparin(*) 40 MG/0.4 ML SYR SUBCUT SCH (18:17)
[2019-09-03] MEDS: metFORMIN* 500 MG TAB PO SCH (18:18)
[2019-09-03] MEDS: Senna TAB 8.6 mg* TAB PO SCH (22:07)
[2019-09-04] MEDS: metFORMIN* 500 MG TAB PO SCH (09:15)
[2019-09-04] MEDS: Insulin LISPRO* 1 UNITS UNIT SUBCUT SCH (09:15)
[2019-09-04] MEDS: Lisinopril TAB* 5 MG PO SCH (09:15)
--- NOTE | 2019-09-04 11:31 | DS ---
ADDENDUM TO DISCHARGE SUMMARY Discharge summary was entered on 09/03/2019. DATE OF ADMISSION: 08/30/2019. UPDATED DATE OF DISCHARGE: 09/04/2019. CONDITION ON DISCHARGE: Good. UPDATED HOSPITAL COURSE: The patient was ready for discharge on September 03; however, she was noted to eat significant amounts of food, especially carbohydrate and simple sugar rich food. Because of that, her blood glucose increased significantly to over 444 by [id number] machine, confirmed on se rum blood draw. The patient required increased doses of short-acting insulin. It is noted that when patient is not given significant amounts of simple carbohydrate rich food, her blood glucose remains at goal, so she was continued on her regimen of insulin Glargine 15 units daily with Metformin 500 tw ice a day and weekly injections of Dulaglutide. Again, it is incredibly important that this patient not be fed a diet high in simple sugars and carbohydrates. [id number]/[facility] #: [id number]
[2019-09-04] MEDS: Nystatin OINT* 15 GM TOPICAL SCH (11:47)
[2019-09-04] MEDS ORDERED: Insulin GLARGINE(*) 1 UNITS UNIT SUBCUT SCH (12:00)
[2019-09-04 12:31] VITALS: BP 139/64
== END 2019-09-04 11:45 | DRG 638 ==
LOC: ED 15:20 → ICU 18:31 → MED 09-01 11:40
PROVIDERS: ADMIT Internal Medicine; ATTEND Internal Medicine
PROC: 05H533Z Insertion of Infusion Device into Right Subclavian Vein, Percutaneous Approach (ICD-10-PCS; principal; 2019-08-31)
PROC: 05PYX3Z Removal of Infusion Device from Upper Vein, External Approach (ICD-10-PCS; 2019-09-03)
DX: E11.01 Type 2 diabetes mellitus with hyperosmolarity with coma (principal); N39.0 Urinary tract infection, site not specified; N17.9 Acute kidney failure, unspecified; E87.0 Hyperosmolality and hypernatremia; F03.90 Unspecified dementia, unspecified severity, without behavioral disturbance, psychotic disturbance, mood disturbance, and anxiety; E78.00 Pure hypercholesterolemia, unspecified; E78.5 Hyperlipidemia, unspecified; D72.829 Elevated white blood cell count, unspecified; B96.1 Klebsiella pneumoniae [K. pneumoniae] as the cause of diseases classified elsewhere; Z66 Do not resuscitate; Z88.0 Allergy status to penicillin; Z88.2 Allergy status to sulfonamides; Z79.4 Long term (current) use of insulin; Z79.899 Other long term (current) drug therapy
CPT/HCPCS: 36415; 70450; 71045; 80048; 80053; 81003; 81015; 82803; 82947; 83605; 83735; 84100; 84484; 85025; 85610; 85730; 87040; 87077; 87086; 87186; 87641; 93005; 99284; A9270-GY; J0696; J1630; J1650; J1815; J2060; J3475; J3480

== ENCOUNTER 2024-01-19 12:58 | Observation (INO) ==
[2024-01-19 15:00] LABS: Calcium 8.6 mg/dL (8.6-10.3); Creatinine, Serum 0.85 mg/dL (0.51-0.95); Potassium 4.4 mmol/L (3.5-5.0); eGFR CKD-EPI 69.2 (>60)
[2024-01-19 15:02] LABS: Albumin 3.4 g/dL (3.2-5.2); Albumin/Globulin Ratio 1.2 (1-3); Direct Bilirubin 1.3 mg/dL (0.03-0.18); Globulin 2.8 g/dL (2-4); Indirect Bilirubin 0.9 mg/dL (0.3-1.0); Total Bilirubin 2.2 mg/dL (0.2-1.0); Total Protein 6.2 g/dL (6.4-8.9)
[2024-01-19] MEDS ORDERED: cefTRIAXone 2 GM ADDV.VIAL 2 GM in NS 0.9% 100 ml BAG 100 ML IV ONE (19:52)
[2024-01-19] MEDS: metroNIDAZOLE IV 500 MG/100ML 500 MG/100 ML BAG IVPB ONE (20:58)
[2024-01-19] MEDS: cefTRIAXone 2 gm/50 mL D5W 2 GM/50 ML BAG IV ONE (20:58)
[2024-01-19 22:12] LABS: ABS Eosinophils 0.1 10^3/uL (0.0-0.5); ABS Lymphocytes 1.4 10^3/uL (1.0-4.8); ABS Neutrophils 6.4 10^3/uL (1.5-7.6); Eosinophil % 1.5 %; Hematocrit 42.1 % (35-45); Hemoglobin 13.7 g/dL (11.5-14.3); Lymphocyte % 15.6 %; Mean Corpuscular Hemoglobin 30.5 pg (27-33); Mean Corpuscular Hgb Conc 32.7 g/dL (31-36); Mean Corpuscular Volume 93.3 fL (80-97); Mean Platelet Volume 9.3 fL (7.5-11.2); Platelet Count 133 10^3/uL (150-450); Red Blood Count 4.51 10^6/uL (3.63-4.92); Red Cell Distribution Width 14.8 % (12-17)
[2024-01-20] MEDS ORDERED: Lactated Ringers 1000 ml BAG 1,000 ML IV SCH (06:00)
[2024-01-20] MEDS: metroNIDAZOLE IV 500 MG/100ML 500 MG/100 ML BAG IVPB SCH (06:08)
[2024-01-20 06:25] LABS: ALT 549 U/L (7-52)
[2024-01-20] MEDS: D5LR 20 MEQ KCL 1000 ml BAG 1,000 ML IV SCH (06:25)
[2024-01-20 06:27] LABS: Albumin 3.1 g/dL (3.2-5.2); Albumin/Globulin Ratio 1.1 (1-3); Alkaline Phosphatase 331 U/L (35-149); Anion Gap 7 mmol/L (2-16); Blood Urea Nitrogen 18 mg/dL (6-24); CO2 Carbon Dioxide 25 mmol/L (22-32); Calcium 8.1 mg/dL (8.6-10.3); Chloride 111 mmol/L (101-111); Creatinine, Serum 0.54 mg/dL (0.51-0.95); Globulin 2.9 g/dL (2-4); Glucose 64 mg/dL (70-100); Sodium 143 mmol/L (135-145); Total Bilirubin 1.3 mg/dL (0.2-1.0)
[2024-01-20] MEDS ORDERED: Ondansetron 4 mg VIAL 2 MG/ML 2 ml VIAL IV PRN (12:59)
[2024-01-20] MEDS: Enoxaparin 40 MG/0.4 ML SYR SUBCUT SCH (13:57)
[2024-01-20 14:54] LABS: Potassium Redraw 4.3 mmol/L (3.5-5.0)
[2024-01-20] MEDS ORDERED: metroNIDAZOLE IV 500 MG/100ML 500 MG/100 ML BAG IVPB SCH (16:00)
[2024-01-20] MEDS ORDERED: cefTRIAXone 1 gm/50 mL D5W 1 GM/50 ML BAG IV SCH (20:00)
[2024-01-20] MEDS: Senna TAB 8.6 mg TAB PO SCH (22:04)
[2024-01-20] MEDS: cefTRIAXone 2 gm/50 mL D5W 2 GM/50 ML BAG IV SCH (22:16)
[2024-01-21 07:41] LABS: ABS Eosinophils 0.1 10^3/uL (0.0-0.5); ABS Lymphocytes 1.2 10^3/uL (1.0-4.8); ABS Monocytes 0.8 10^3/uL (0.0-0.9); ABS Neutrophils 5.8 10^3/uL (1.5-7.6); Eosinophil % 1.6 %; Hematocrit 43.4 % (35-45); Hemoglobin 14.4 g/dL (11.5-14.3); Lymphocyte % 14.6 %; Mean Corpuscular Hemoglobin 30.9 pg (27-33); Mean Corpuscular Hgb Conc 33.2 g/dL (31-36); Mean Corpuscular Volume 93.2 fL (80-97); Mean Platelet Volume 9.4 fL (7.5-11.2); Nucleated Red Blood Cells % 0.1 %/100WBC (0.0-0.8); Platelet Count 147 10^3/uL (150-450); Red Blood Count 4.65 10^6/uL (3.63-4.92); Red Cell Distribution Width 14.7 % (12-17); White Blood Count 7.9 10^3/uL (3.8-11.8)
[2024-01-21 08:31] LABS: Calcium 8.4 mg/dL (8.6-10.3); Creatinine, Serum 0.64 mg/dL (0.51-0.95); Magnesium 1.7 mg/dL (1.9-2.7); Potassium 3.9 mmol/L (3.5-5.0); eGFR CKD-EPI 89.3 (>60)
[2024-01-21] MEDS: Empagliflozin 25 MG TAB PO SCH (08:58)
[2024-01-21] MEDS: Aspirin EC 81 mg TAB.EC (enteric coated) PO SCH (08:59)
[2024-01-21] MEDS: Insulin GLARGINE 100 un/ml 10 ml VIAL SUBCUT SCH (09:07)
[2024-01-21] MEDS: Magnesium Sulfate 2 gm BAG 2 GM/50 ML BAG IVPB ONE (10:00)
[2024-01-21 14:32] LABS: Albumin 3.3 g/dL (3.2-5.2); Albumin/Globulin Ratio 1.1 (1-3); Direct Bilirubin 0.4 mg/dL (0.03-0.18); Globulin 2.9 g/dL (2-4); Indirect Bilirubin 0.8 mg/dL (0.3-1.0); Total Bilirubin 1.2 mg/dL (0.2-1.0); Total Protein 6.2 g/dL (6.4-8.9)
[2024-01-22 06:01] VITALS: BP 163/82
== END 2024-01-22 11:10 | disposition home or self-care (01) ==
LOC: ED 12:58 → EDHOLD 12:58 → SSU 01-20 13:13
PROVIDERS: ADMIT Student in an Organized Health Care Education/Training Program; ATTEND Student in an Organized Health Care Education/Training Program

== ENCOUNTER 2024-06-03 21:34 | Inpatient (IN) ==
[2024-06-03 23:33] LABS: Hematocrit 34.4 % (35-45); Hemoglobin 11.1 g/dL (11.5-14.3); Mean Corpuscular Hemoglobin 30.6 pg (27-33); Mean Corpuscular Hgb Conc 32.2 g/dL (31-36); Mean Corpuscular Volume 94.9 fL (80-97); Mean Platelet Volume 9.7 fL (7.5-11.2); Platelet Count 222 10^3/uL (150-450); Red Blood Count 3.62 10^6/uL (3.63-4.92); Red Cell Distribution Width 16.7 % (12-17); White Blood Count 17.6 10^3/uL (3.8-11.8)
[2024-06-03 23:38] LABS: ABS Basophils 0.1 10^3/uL (0.0-0.1); ABS Eosinophils 0.1 10^3/uL (0.0-0.5); ABS Lymphocytes 1.2 10^3/uL (1.0-4.8); ABS Monocytes 1.8 10^3/uL (0.0-0.9); ABS Neutrophils 14.4 10^3/uL (1.5-7.6); ABS Nucleated RBC 0.01 10^3/ul; Eosinophil % 0.6 %; Lymphocyte % 6.8 %; Nucleated Red Blood Cells % 0.1 %/100WBC (0.0-0.8)
[2024-06-03 23:52] LABS: High Sens Troponin Baseline 155 pg/mL (<15)
[2024-06-04 01:10] LABS: ALT 81 U/L (7-52); Albumin 2.9 g/dL (3.2-5.2); Albumin/Globulin Ratio 0.7 (1-3); Alkaline Phosphatase 1003 U/L (35-149); Anion Gap 10 mmol/L (2-16); Blood Urea Nitrogen 29 mg/dL (6-24); C Reactive Protein 148.82 mg/L (<8.01); CO2 Carbon Dioxide 26 mmol/L (22-32); Calcium 8.1 mg/dL (8.6-10.3); Chloride 96 mmol/L (101-111); Creatinine, Serum 0.91 mg/dL (0.51-0.95); Globulin 4.2 g/dL (2-4); Glucose 251 mg/dL (70-100); Sodium 132 mmol/L (135-145); Total Bilirubin 1.5 mg/dL (0.2-1.0); Total Protein 7.1 g/dL (6.4-8.9); eGFR CKD-EPI 63.8 (>60)
[2024-06-04 01:17] LABS: High Sensitivity Troponin 1 Hr 130 pg/mL (<15)
[2024-06-04] MEDS: Iodixanol 320 (CONTRAST) 100 ML SDV IV ONE (02:16)
[2024-06-04] MEDS ORDERED: Dextrose 50% Syringe 50 ml 25 GM/50 ML SYRINGE IV PUSH PRN (03:51)
[2024-06-04] MEDS ORDERED: Heparin 5000 UNITS/ML 1 mL VIAL IV SCH (05:00)
[2024-06-04 05:12] LABS: Potassium Redraw 4.7 mmol/L (3.5-5.0)
[2024-06-04 05:21] LABS: Hematocrit 29.3 % (35-45); Hemoglobin 9.6 g/dL (11.5-14.3); Mean Corpuscular Hemoglobin 31.2 pg (27-33); Mean Corpuscular Hgb Conc 32.8 g/dL (31-36); Mean Platelet Volume 9.4 fL (7.5-11.2); Platelet Count 191 10^3/uL (150-450); Red Blood Count 3.08 10^6/uL (3.63-4.92); Red Cell Distribution Width 16.8 % (12-17); White Blood Count 14.4 10^3/uL (3.8-11.8)
[2024-06-04 05:23] LABS: ABS Basophils 0.1 10^3/uL (0.0-0.1); ABS Eosinophils 0.1 10^3/uL (0.0-0.5); ABS Lymphocytes 0.8 10^3/uL (1.0-4.8); ABS Monocytes 1.6 10^3/uL (0.0-0.9); ABS Neutrophils 11.8 10^3/uL (1.5-7.6); ABS Nucleated RBC 0.01 10^3/ul; Eosinophil % 0.7 %; Lymphocyte % 5.8 %
[2024-06-04 05:55] LABS: Albumin 2.4 g/dL (3.2-5.2); Albumin/Globulin Ratio 0.7 (1-3); Calcium 7.5 mg/dL (8.6-10.3); Creatinine, Serum 0.9 mg/dL (0.51-0.95); Globulin 3.4 g/dL (2-4); Potassium 4.5 mmol/L (3.5-5.0); Total Bilirubin 1.4 mg/dL (0.2-1.0); Total Protein 5.8 g/dL (6.4-8.9); eGFR CKD-EPI 64.6 (>60)
[2024-06-04] MEDS: cefTRIAXone 1 gm/50 mL D5W 1 GM/50 ML BAG IV SCH (06:03)
[2024-06-04] MEDS: Heparin 5000 UNITS/ML 1 mL VIAL IV SCH (06:57)
[2024-06-04] MEDS: Heparin DRIP 25,000 UNITS BAG 25,000 UNITS/250 ML BAG IV SCH (07:04)
[2024-06-04] MEDS: Sulfur Hexaflouride MICROSPHR 25 MG VIAL IV PRN (09:15)
[2024-06-04] MEDS: Azithromycin 500 mg/250 ml NS 500 MG/250 ML BAG IVPB SCH (11:08)
[2024-06-04] MEDS: Aspirin EC 81 mg TAB.EC (enteric coated) PO SCH (11:16)
[2024-06-04] MEDS: metroNIDAZOLE IV 500 MG/100ML 500 MG/100 ML BAG IVPB SCH (11:16)
[2024-06-04] MEDS: Furosemide 20 mg/2 ml IV VIAL IV SLOW PU ONE (16:11)
[2024-06-04 16:56] LABS: Urine Appearance Clear; Urine Bilirubin Negative (Negative); Urine Blood Trace (Negative); Urine Color Yellow; Urine Glucose Negative (Negative); Urine Ketones Negative (Negative); Urine Nitrite Negative (Negative); Urine Protein Negative (Negative); Urine Urobilinogen Negative (Negative); Urine pH 5.5 (5.0-8.0)
[2024-06-04 16:59] LABS: Urine Bacteria Absent /HPF (Absent); Urine Red Blood Cell Trace(0-2/hpf) /HPF (0-Trace); Urine Squamous Epithelial Cell Present /HPF (Absent); Urine White Blood Cell 1+(6-10/hpf) /HPF (0-Trace)
[2024-06-04] MEDS: Insulin GLARGINE 100 un/ml 10 ml VIAL SUBCUT SCH (20:23)
[2024-06-05 04:16] LABS: Hematocrit 29.7 % (35-45); Hemoglobin 9.7 g/dL (11.5-14.3); Mean Corpuscular Hemoglobin 30.8 pg (27-33); Mean Corpuscular Hgb Conc 32.5 g/dL (31-36); Mean Corpuscular Volume 94.8 fL (80-97); Mean Platelet Volume 9.7 fL (7.5-11.2); Platelet Count 207 10^3/uL (150-450); Red Blood Count 3.13 10^6/uL (3.63-4.92); Red Cell Distribution Width 16.6 % (12-17); White Blood Count 14.2 10^3/uL (3.8-11.8)
[2024-06-05 04:31] LABS: Albumin 2.3 g/dL (3.2-5.2); Albumin/Globulin Ratio 0.7 (1-3); Calcium 7.6 mg/dL (8.6-10.3); Creatinine, Serum 0.88 mg/dL (0.51-0.95); Globulin 3.3 g/dL (2-4); Potassium 4.1 mmol/L (3.5-5.0); Total Bilirubin 1.2 mg/dL (0.2-1.0); Total Protein 5.6 g/dL (6.4-8.9); eGFR CKD-EPI 66.4 (>60)
[2024-06-05 04:56] LABS: ABS Basophils 0.1 10^3/uL (0.0-0.1); ABS Eosinophils 0.2 10^3/uL (0.0-0.5); ABS Monocytes 1.6 10^3/uL (0.0-0.9); ABS Neutrophils 11.3 10^3/uL (1.5-7.6); Eosinophil % 1.2 %; Lymphocyte % 7.2 %
[2024-06-05] MEDS: Furosemide 20 mg/2 ml IV VIAL IV SLOW PU ONE ×2 (08:24→14:34)
[2024-06-05] MEDS: Insulin GLARGINE 100 un/ml 10 ml VIAL SUBCUT SCH (20:41)
[2024-06-06 07:49] LABS: Albumin 2.3 g/dL (3.2-5.2); Albumin/Globulin Ratio 0.7 (1-3); Calcium 7.4 mg/dL (8.6-10.3); Creatinine, Serum 0.88 mg/dL (0.51-0.95); Globulin 3.3 g/dL (2-4); Potassium 3.9 mmol/L (3.5-5.0); Total Bilirubin 1.3 mg/dL (0.2-1.0); Total Protein 5.6 g/dL (6.4-8.9); eGFR CKD-EPI 66.4 (>60)
[2024-06-06] MEDS: Senna TAB 8.6 mg TAB PO PRN (07:55)
[2024-06-06] MEDS: Polyethylene Glycol 3350 17 GM PACKET PO PRN (07:55)
[2024-06-06 08:06] LABS: ABS Basophils 0.1 10^3/uL (0.0-0.1); ABS Eosinophils 0.1 10^3/uL (0.0-0.5); ABS Lymphocytes 1.1 10^3/uL (1.0-4.8); ABS Monocytes 1.6 10^3/uL (0.0-0.9); ABS Neutrophils 12.1 10^3/uL (1.5-7.6); Eosinophil % 0.9 %; Hematocrit 30.7 % (35-45); Hemoglobin 9.9 g/dL (11.5-14.3); Lymphocyte % 7.2 %; Mean Corpuscular Hemoglobin 31.1 pg (27-33); Mean Corpuscular Hgb Conc 32.3 g/dL (31-36); Mean Corpuscular Volume 96.3 fL (80-97); Mean Platelet Volume 9.7 fL (7.5-11.2); Platelet Count 241 10^3/uL (150-450); Red Blood Count 3.19 10^6/uL (3.63-4.92); Red Cell Distribution Width 16.5 % (12-17)
[2024-06-06 09:39] LABS: Glucose, BF 187 mg/dL
[2024-06-06 13:44] LABS: Lactate Dehydrogenase, BF 302 U/L
[2024-06-06 14:10] LABS: Fluid Type, Protein, Total PLEURAL FLUID; Total Protein, BF 2.9 g/dL
[2024-06-06] MEDS: Cefepime 1 GM in Dextrose 1 GM/50 ML BAG IV SCH (16:33)
[2024-06-06] MEDS: Insulin GLARGINE 100 un/ml 10 ml VIAL SUBCUT SCH (20:53)
[2024-06-07 06:36] LABS: Hematocrit 31.5 % (35-45); Hemoglobin 10.2 g/dL (11.5-14.3); Mean Corpuscular Hemoglobin 31.1 pg (27-33); Mean Corpuscular Hgb Conc 32.4 g/dL (31-36); Mean Platelet Volume 9.5 fL (7.5-11.2); Platelet Count 274 10^3/uL (150-450); Red Blood Count 3.28 10^6/uL (3.63-4.92); Red Cell Distribution Width 17.2 % (12-17); White Blood Count 15.6 10^3/uL (3.8-11.8)
[2024-06-07 07:08] LABS: ABS Basophils 0.1 10^3/uL (0.0-0.1); ABS Eosinophils 0.2 10^3/uL (0.0-0.5); ABS Lymphocytes 1.4 10^3/uL (1.0-4.8); ABS Monocytes 1.8 10^3/uL (0.0-0.9); ABS Neutrophils 12.1 10^3/uL (1.5-7.6); Eosinophil % 1.5 %; Lymphocyte % 8.7 %
[2024-06-07 07:15] LABS: Albumin 2.2 g/dL (3.2-5.2); Albumin/Globulin Ratio 0.6 (1-3); Calcium 7.5 mg/dL (8.6-10.3); Creatinine, Serum 0.9 mg/dL (0.51-0.95); Globulin 3.4 g/dL (2-4); Potassium 4.2 mmol/L (3.5-5.0); Total Bilirubin 1.3 mg/dL (0.2-1.0); Total Protein 5.6 g/dL (6.4-8.9); eGFR CKD-EPI 64.6 (>60)
[2024-06-07] MEDS: Lactated Ringers 1000 ml BAG 1,000 ML IV SCH (14:46)
[2024-06-08 08:22] LABS: ABS Basophils 0.1 10^3/uL (0.0-0.1); ABS Eosinophils 0.1 10^3/uL (0.0-0.5); ABS Monocytes 1.4 10^3/uL (0.0-0.9); ABS Neutrophils 12.3 10^3/uL (1.5-7.6); ABS Nucleated RBC 0.01 10^3/ul; Eosinophil % 0.8 %; Hematocrit 34.5 % (35-45); Lymphocyte % 6.8 %; Mean Corpuscular Hemoglobin 30.6 pg (27-33); Mean Corpuscular Hgb Conc 31.7 g/dL (31-36); Mean Corpuscular Volume 96.6 fL (80-97); Mean Platelet Volume 9.4 fL (7.5-11.2); Platelet Count 314 10^3/uL (150-450); Red Blood Count 3.58 10^6/uL (3.63-4.92); Red Cell Distribution Width 17.2 % (12-17); White Blood Count 14.9 10^3/uL (3.8-11.8)
[2024-06-08 08:40] LABS: Albumin 2.4 g/dL (3.2-5.2); Albumin/Globulin Ratio 0.7 (1-3); Calcium 7.7 mg/dL (8.6-10.3); Creatinine, Serum 0.88 mg/dL (0.51-0.95); Globulin 3.6 g/dL (2-4); Potassium 4.2 mmol/L (3.5-5.0); Total Bilirubin 1.4 mg/dL (0.2-1.0); eGFR CKD-EPI 66.4 (>60)
[2024-06-08 13:19] VITALS: BP 126/65
[2024-06-08] MEDS: Lactated Ringers 1000 ml BAG 1,000 ML IV SCH (13:36)
[2024-06-09] MEDS: CIPROFLOXACIN PO SCH (14:21)
[2024-06-09] MEDS: ORALSYR PO SCH (14:21)
[2024-06-10] MEDS: Morphine ORAL CONCENTRATE 5 MG/0.25 ML ORAL.SYRIN SL PRN (10:42)
== END 2024-06-10 11:30 | DRG 871 ==
LOC: ED 21:34 → SUATTDRO 06-04 03:32 → EDHOLD 06-04 03:32 → MED 06-04 04:29
PROVIDERS: ADMIT Hospitalist; ATTEND Student in an Organized Health Care Education/Training Program